=== PATIENT | male | born 1935 | race Caucasian/White ===

== ENCOUNTER → 2017-11-22 07:07 | Outpatient (CLI) | payer OTHER, SELFPAY ==
[2017-11-22 09:27] LABS: Hemoglobin A1C% w Est Avg Glu 7.1 % (4.0-6.0)
[2017-11-22 09:39] LABS: Alanine Aminotransferase 30 IU/L (21-72); Albumin 4.3 g/dL (3.5-5.0); Albumin Globulin Ratio 1.5 (1.0-2.8); Alkaline Phosphatase 60 U/L (38-126); Aspartate Aminotransferase 21 IU/L (17-59); Bilirubin Total 0.5 mg/dL (0.2-1.3); Blood Urea Nitrogen 17 mg/dL (9-20); Carbon Dioxide 26 mmol/L (22-32); Chloride 102 mmol/L (98-107); Cholesterol 183 mg/dL (140-199); Estimated Glomerular Filt Rate > 60.0 mL/min (>60); Globulin 2.9 g/dL (1.7-4.1); Glucose 156 mg/dL (80-110); HDL Cholesterol 35 mg/dL (40-60); HEMOLYSIS < 15 (0-50); LDL Cholesterol Calculated 115 mg/dL (<100); Potassium 4.2 mmol/L (3.4-5.1); Sodium 142 mmol/L (137-145); Total Protein 7.2 g/dL (6.3-8.2); Triglycerides 163 mg/dL (35-150)
== END ==
PROVIDERS: PCP Family Medicine; Visit Provider Urology
DX: R97.20 Elevated prostate specific antigen [PSA] (principal); E78.5 Hyperlipidemia, unspecified; R73.9 Hyperglycemia, unspecified
CPT/HCPCS: 36415; 80053; 80061; 83036; 84153

== ENCOUNTER → 2017-12-21 12:51 | Outpatient (CLI) | payer OTHER, SELFPAY ==
--- NOTE | 2017-12-21 12:52 | DI.RAD.S_ITS ---
PROCEDURE: XR CHEST 2V INDICATIONS: Cough TECHNIQUE: 2 views of the chest were acquired. COMPARISON: None. FINDINGS: Surgical changes and devices: None. Lungs and pleura: No pleural effusions or pneumothorax. Lungs are minimal alveolar stranding lateral lung bases bilaterally possibly atelectasis given mildly reduced inspiratory volume. Behind the left heart mild or early pneumonia is suspected.. Mediastinum: Mediastinal contours are normal. Heart size is normal. Bones and chest wall: No suspicious bony abnormalities. Soft tissues appear unremarkable. IMPRESSION: Mild or early pneumonia retrocardiac left lung base. Slight stranding in each costophrenic sulcus seen on the frontal projection only, which might represent atelectasis from reduced inspiration. Dictated by: Aris Cruz M.D. on 12/21/2017 at 13:18 Approved by: Aris Cruz M.D. on 12/21/2017 at 13:18
== END ==
PROVIDERS: PCP Family Medicine; Visit Provider Family Medicine
DX: J18.9 Pneumonia, unspecified organism (principal)
CPT/HCPCS: 71046

== ENCOUNTER → 2018-03-15 13:56 | Outpatient (CLI) | payer OTHER, SELFPAY ==
--- NOTE | 2018-03-15 13:58 | DI.RAD.S_ITS ---
PROCEDURE: XR CHEST 2V INDICATIONS: rule out pneumonia TECHNIQUE: 2 views of the chest were acquired. COMPARISON: [facility], CR, XR CHEST 2V, 12/21/2017, 12:50. FINDINGS: Surgical changes and devices: None. Lungs and pleura: No pleural effusions or pneumothorax. Lungs are clear. Mediastinum: Mediastinal contours are normal. Heart size is normal. Bones and chest wall: No suspicious bony abnormalities. Soft tissues appear unremarkable. IMPRESSION: No acute cardiopulmonary pathology. Dictated by: Alphonse Morgan M.D. on 03/15/2018 at 15:00 Approved by: Alphonse Morgan M.D. on 03/15/2018 at 15:00
== END ==
PROVIDERS: PCP Family Medicine; Visit Provider Family Medicine
DX: Z87.01 Personal history of pneumonia (recurrent) (principal)
CPT/HCPCS: 71046

== ENCOUNTER → 2018-07-03 07:04 | Outpatient (CLI) | payer OTHER, SELFPAY ==
[2018-07-03 09:03] LABS: Alanine Aminotransferase 27 IU/L (21-72); Albumin 4.2 g/dL (3.5-5.0); Albumin Globulin Ratio 1.4 (1.0-2.8); Alkaline Phosphatase 66 U/L (38-126); Aspartate Aminotransferase 20 IU/L (17-59); BUN Creatinine Ratio 13.8 (6-22); Bilirubin Total 0.6 mg/dL (0.2-1.3); Blood Urea Nitrogen 18 mg/dL (9-20); Calcium 9.3 mg/dL (8.4-10.2); Carbon Dioxide 25 mmol/L (22-32); Chloride 102 mmol/L (98-107); Cholesterol 179 mg/dL (140-199); Globulin 3.1 g/dL (1.7-4.1); Glucose 167 mg/dL (80-110); HDL Cholesterol 35 mg/dL (40-60); HEMOLYSIS < 15 (0-50); LDL Cholesterol Calculated 99 mg/dL (<100); Sodium 140 mmol/L (137-145); Total Protein 7.3 g/dL (6.3-8.2); Triglycerides 227 mg/dL (35-150)
== END ==
PROVIDERS: PCP Family Medicine; Visit Provider Family Medicine
DX: E78.5 Hyperlipidemia, unspecified (principal); I10 Essential (primary) hypertension
CPT/HCPCS: 36415; 80053; 80061

== ENCOUNTER → 2018-07-22 10:24 | Outpatient (CLI) | payer OTHER, SELFPAY ==
--- NOTE | 2018-07-22 10:28 | DI.RAD.S_ITS ---
PROCEDURE: XR CHEST 2V INDICATIONS: Cough TECHNIQUE: 2 views of the chest were acquired. COMPARISON: [facility], CR, XR CHEST 2V, 03/15/2018, 13:46. FINDINGS: Surgical changes and devices: None. Lungs and pleura: Lungs are clear. No pleural effusions or pneumothorax. Mediastinum: Mediastinal contours are normal. Heart size is normal. Bones and chest wall: No suspicious bony abnormalities. Soft tissues appear unremarkable. IMPRESSION: No acute pulmonary pathology. Dictated by: Alphonse Morgan M.D. on 07/22/2018 at 10:39 Approved by: Alphonse Morgan M.D. on 07/22/2018 at 10:39
== END ==
PROVIDERS: PCP Family Medicine; Visit Provider Family Medicine
DX: R05 Cough (principal)
CPT/HCPCS: 71046

== ENCOUNTER 2018-10-04 19:47 | Inpatient (IN) | payer OTHER, SELFPAY ==
[2018-10-04] VITALS (7 sets, daily range): BP systolic 98–134; BP diastolic 42–65; PULSE 65–83; RESP 14–25; TEMP 37.2–38.6; O2SAT 94–98; BMI 28.1
--- NOTE | 2018-10-04 20:08 | ED.WEAKNESS ---
HPI - Weakness General Chief complaint: Weakness Stated complaint: Multiple Falls Time Seen by Provider: 10/04/18 20:08 Source: patient Mode of arrival: EMS Limitations: no limitations History of Present Illness HPI Narrative: 83-year-old male who lives at home alone brought in by EMS because over the past couple days he has had weakness and multiple falls. He states he has not eaten and drank very much over the past couple days because he has been too weak to get up and every time that he stands up he would fall down. He reports no injuries from the falls. He states that he has not taken his medicines in the past couple days. He does have a medical alert button around his neck but he does not use this. He had does not have any family living in the area. Has not tried anything for symptoms prior to arrival. Related Data Home Medications Medication Instructions Recorded Confirmed Fish Oil (#FISH OIL) 1 iu PO QDAY #0 06/03/12 07/19/18 vit C,Z-Jw-wxyxq-lutein-zeaxan 1 ea PO #0 06/06/17 07/19/18 [PreserVision AREDS-2] aspirin 81 mg tablet,delayed 81 mg PO DAILY 12/21/17 07/19/18 release Previous Rx's Medication Instructions Recorded metoprolol succinate [Toprol XL] 25 mg PO QDAY #90 ter 04/22/18 benzonatate 100 mg capsule 100 mg PO TID PRN #30 cap 07/19/18 tamsulosin 0.4 mg capsule 0.8 mg PO DAILY #180 cap 08/13/18 lovastatin 20 mg tablet 20 mg PO DAILY #90 tab 08/30/18 Allergies Allergy/AdvReac Type Severity Reaction Status Date / Time No Known Drug Allergies Allergy Verified 10/04/18 20:09 Review of Systems Constitutional Reports chills, Reports fatigue, Reports fever(s), Reports frequent falls, Denies headache(s), Reports lethargy, Reports malaise, Reports night sweats and Reports weakness Eyes Denies change in vision ENT Ears, Nose, Mouth, and Throat: Denies vertigo, Denies dizziness, Denies headache(s) and Reports disequilibrium Cardiovascular Denies chest pain and Denies dyspnea Respiratory Denies dyspnea Gastrointestinal Gastrointestinal: Denies abdominal pain, Denies change in stool character, Denies nausea and Denies vomiting Genitourinary Denies dysuria Musculoskeletal Denies myalgias and Denies arthralgias Integumentary/Breasts Denies lesions and Denies rash Neurologic Denies behavioral changes, Denies confusion, Denies vertigo, Denies dizziness, Reports frequent falls, Denies headache(s), Denies focal weakness, Denies convulsions, Denies paresthesias, Reports disequilibrium and Reports weakness Psychiatric Denies behavioral changes and Denies confusion Endocrine Reports fatigue Hematologic/Lymphatic Denies easy bleeding and Denies easy bruising Allergic/Immunologic Denies urticaria [facility] Medical History BPH (benign prostatic hyperplasia) (Chronic Unknown) Diverticular disease (Chronic Unknown) Hearing loss (Chronic Unknown) Hyperlipemia (Chronic Unknown) Sleep apnea (Chronic Unknown) Skin cancer (Resolved Unknown) Squamous cell carcinoma (Resolved 01/2016) Family History Father No problems noted. Mother No problems noted. Social History Smoking Status: Former smoker Tobacco: How many years used: 20 alcohol intake: current (rare) Exam Initial Vital Signs Initial Vital Signs: Vital Signs Temperature 101.5 F H 10/04/18 20:09 Pulse Rate 83 10/04/18 20:09 Respiratory Rate 16 10/04/18 20:09 Blood Pressure 129/65 10/04/18 20:09 Pulse Oximetry 98 10/04/18 20:09 Const General: ill appearing Orientation: alert, awake and oriented x3 Limitations: mental status not altered HENVA Head: normal to inspection and normocephalic Nose: external nose normal Face and sinus: normal facial exam Mouth: other (Dry mucous membranes) Eyes Pupils: PERRL EOM: EOM intact bilaterally Resp Effort & Inspection: normal respiratory effort Auscultation: clear to auscultation bilaterally Cardio Rate: regular rate Rhythm: regular rhythm Pulses: radial pulses present GI Inspection: non-distended Palpation: soft, No firm and No tender Skin Rashes: no rashes Neuro General: alert, awake and oriented x3 Cognition: normal cognition Speech: speech normal Gait: normal gait Motor: muscle tone normal throughout Extrem General: normal to inspection, capillary refill normal and No edema Psych Appearance: grossly normal and well kempt Course Orders Ordered: ED Orders 10/04/18 19:20 B Type Natriuretic Peptide Stat Complete Blood Count AUTO DIFF Stat Comprehensive Metabolic Panel Stat Lipase Stat Procalcitonin Stat Troponin I Stat 10/04/18 20:10 XR chest 1V Stat EKG-12 Lead Stat 10/04/18 20:25 Influenza A and B by PCR Rapid Stat 10/04/18 20:31 Ethanol (ETOH) Stat Lactate (Lactic Acid) Stat 10/04/18 21:32 US abdomen complete Stat 10/04/18 22:00 Urine Microscopic Stat 10/05/18 01:27 Lactate (Lactic Acid) Stat Troponin I Stat Sodium Chloride (Normal Saline 0.9%) 1,000 mls @ 150 mls/hr IV CONT MATEO Last Admin: 10/04/18 20:40 Dose: 150 mls/hr Levofloxacin (Levaquin) 750 mg in 150 mls @ 100 mls/hr IV NOW ONE Stop: 10/05/18 03:29 Discontinued Medications Acetaminophen (Tylenol) 650 mg PO NOW ONE Stop: 10/04/18 21:05 Last Admin: 10/04/18 21:11 Dose: 650 mg Ceftriaxone Sodium/Dextrose (Rocephin) 1 gm in 50 mls @ 100 mls/hr IV NOW ONE Stop: 10/05/18 02:22 Vital Signs - 8 hr 10/04/18 20:09 10/04/18 21:11 10/04/18 21:42 Temperature 101.5 F H 99.9 F H 98.9 F Pulse Rate 83 Respiratory Rate 16 Blood Pressure 129/65 Blood Pressure [Right Arm] Pulse Oximetry 98 10/04/18 22:18 10/04/18 22:20 10/04/18 22:30 Temperature Pulse Rate 75 79 65 Respiratory Rate 14 19 Blood Pressure Blood Pressure [Right Arm] 134/52 L 134/52 L 120/49 L Pulse Oximetry 97 96 94 10/04/18 23:00 10/05/18 01:05 Temperature 98.4 F Pulse Rate 65 114 H Respiratory Rate 25 H 17 Blood Pressure Blood Pressure [Right Arm] 98/42 L 138/61 Pulse Oximetry 95 96 MDM - Weakness Lab Data Attestation: I reviewed the patient's lab results. Result diagrams: 10/04/18 19:20 10/04/18 19:20 Lab Results 10/04/18 10/04/18 10/04/18 Range/Units 19:20 19:20 19:20 WBC 7.0 (4.5-11.0) X10^3/uL RBC 4.29 L (4.5-5.9) X10^6/uL Hgb 13.4 L (13.5-17.5) g/dL Hct 39.2 L (41-53) % MCV 91.2 (80-100) fL MCH 31.2 (26-34) PG MCHC 34.2 (30-36) % RDW 14.1 (11.6-14.8) % Plt Count 128 L (150-400) X10^3/uL Neut % (Auto) 89.8 H (50-75) % Lymph % (Auto) 2.4 L (25-40) % [place] % (Auto) 7.4 (3-14) % Eos % (Auto) 0.2 L (2-4) % Baso % (Auto) 0.2 (0-2) % Neut # (Auto) 6300 (1111-5721) /uL Lymph # (Auto) 200 L (7641-3273) /uL [place] # (Auto) 500 (0-900) /uL Eos # (Auto) 0 (0-450) /uL Baso # (Auto) 0 (0-100) /uL Sodium 132 L (137-145) mmol/L Potassium 3.9 (3.4-5.1) mmol/L Chloride 97 L (98-107) mmol/L Carbon Dioxide 20 L (22-32) mmol/L BUN 24 H (9-20) mg/dL Creatinine 1.20 (0.66-1.25) mg/dL Estimated GFR 58.1 L (>60) mL/min BUN/Creatinine Ratio 20.0 (6-22) Glucose 229 H (80-110) mg/dL Lactate (0.7-2.1) mmol/L Calcium 8.7 (8.4-10.2) mg/dL Total Bilirubin 1.4 H (0.2-1.3) mg/dL AST 127 H (17-59) IU/L ALT 142 H (21-72) IU/L Alkaline Phosphatase 130 H (38-126) U/L Troponin I 0.031 (0.01-0.034) ng/mL B-Natriuretic Peptide < 100 (<100) Total Protein 7.3 (6.3-8.2) g/dL Albumin 4.4 (3.5-5.0) g/dL Globulin 2.9 (1.7-4.1) g/dL Albumin/Globulin Ratio 1.5 (1.0-2.8) Lipase 62 (23-300) U/L Procalcitonin 2.73 H (<0.5) ng/mL Urine RBC (0-5/HPF) Urine WBC (0-5/HPF) Ur Squamous Epith Cells (0-5/HPF) Urine Bacteria (None) Urine Mucus (Negative) Ur Culture Indicated? Ethyl Alcohol mg/dL Influenza A & B (PCR) (Negative) 10/04/18 10/04/18 10/04/18 Range/Units 20:25 20:31 20:31 WBC (4.5-11.0) X10^3/uL RBC (4.5-5.9) X10^6/uL Hgb (13.5-17.5) g/dL Hct (41-53) % MCV (80-100) fL MCH (26-34) PG MCHC (30-36) % RDW (11.6-14.8) % Plt Count (150-400) X10^3/uL Neut % (Auto) (50-75) % Lymph % (Auto) (25-40) % [place] % (Auto) (3-14) % Eos % (Auto) (2-4) % Baso % (Auto) (0-2) % Neut # (Auto) (7121-1120) /uL Lymph # (Auto) (0474-1003) /uL [place] # (Auto) (0-900) /uL Eos # (Auto) (0-450) /uL Baso # (Auto) (0-100) /uL Sodium (137-145) mmol/L Potassium (3.4-5.1) mmol/L Chloride (98-107) mmol/L Carbon Dioxide (22-32) mmol/L BUN (9-20) mg/dL Creatinine (0.66-1.25) mg/dL Estimated GFR (>60) mL/min BUN/Creatinine Ratio (6-22) Glucose (80-110) mg/dL Lactate 1.5 (0.7-2.1) mmol/L Calcium (8.4-10.2) mg/dL Total Bilirubin (0.2-1.3) mg/dL AST (17-59) IU/L ALT (21-72) IU/L Alkaline Phosphatase (38-126) U/L Troponin I (0.01-0.034) ng/mL B-Natriuretic Peptide (<100) Total Protein (6.3-8.2) g/dL Albumin (3.5-5.0) g/dL Globulin (1.7-4.1) g/dL Albumin/Globulin Ratio (1.0-2.8) Lipase (23-300) U/L Procalcitonin (<0.5) ng/mL Urine RBC (0-5/HPF) Urine WBC (0-5/HPF) Ur Squamous Epith Cells (0-5/HPF) Urine Bacteria (None) Urine Mucus (Negative) Ur Culture Indicated? Ethyl Alcohol < 10 mg/dL Influenza A & B (PCR) Negative (Negative) 10/04/18 10/05/18 10/05/18 Range/Units 22:00 01:27 01:27 WBC (4.5-11.0) X10^3/uL RBC (4.5-5.9) X10^6/uL Hgb (13.5-17.5) g/dL Hct (41-53) % MCV (80-100) fL MCH (26-34) PG MCHC (30-36) % RDW (11.6-14.8) % Plt Count (150-400) X10^3/uL Neut % (Auto) (50-75) % Lymph % (Auto) (25-40) % [place] % (Auto) (3-14) % Eos % (Auto) (2-4) % Baso % (Auto) (0-2) % Neut # (Auto) (7474-2357) /uL Lymph # (Auto) (9226-8413) /uL [place] # (Auto) (0-900) /uL Eos # (Auto) (0-450) /uL Baso # (Auto) (0-100) /uL Sodium (137-145) mmol/L Potassium (3.4-5.1) mmol/L Chloride (98-107) mmol/L Carbon Dioxide (22-32) mmol/L BUN (9-20) mg/dL Creatinine (0.66-1.25) mg/dL Estimated GFR (>60) mL/min BUN/Creatinine Ratio (6-22) Glucose (80-110) mg/dL Lactate 3.2 H (0.7-2.1) mmol/L Calcium (8.4-10.2) mg/dL Total Bilirubin (0.2-1.3) mg/dL AST (17-59) IU/L ALT (21-72) IU/L Alkaline Phosphatase (38-126) U/L Troponin I 0.015 (0.01-0.034) ng/mL B-Natriuretic Peptide (<100) Total Protein (6.3-8.2) g/dL Albumin (3.5-5.0) g/dL Globulin (1.7-4.1) g/dL Albumin/Globulin Ratio (1.0-2.8) Lipase (23-300) U/L Procalcitonin (<0.5) ng/mL Urine RBC 1-5/hpf (0-5/HPF) Urine WBC None seen (0-5/HPF) Ur Squamous Epith Cells 0-1 /hpf (0-5/HPF) Urine Bacteria Few (2-10) H (None) Urine Mucus 1+ H (Negative) Ur Culture Indicated? Cult not indicated Ethyl Alcohol mg/dL Influenza A & B (PCR) (Negative) Urine Dip Bedside Urine Glucose 100 mg/dl Bedside Urine Bilirubin - Negative Bedside Urine Ketone +/- 5 Urine Specific [place] 1.015 Bedside Urine Occult Blood +/- Bedside Urine pH 6.0 Bedside Urine Protein + 30 Bedside Urine Urobilinogen 1+ 2mg Bedside Urine Nitrite - Negative Bedside Urine Leukocytes - Negative Esterase Imaging Data Chest x-ray: Radiologist's impression: [address] [address] XRay Report Signed Patient: Jim Mccormick MIGUELINA#: [id number] : 1935cct:[id number] Age/Sex: 83 / MDate of Service: 10/04/18 Loc: ED Accession Number: [id number] Procedure: XR chest 1V Ordering Provider: Jim Reaves D.O. PROCEDURE: XR CHEST 1V INDICATIONS: Weakness and fever concern for pneumonia TECHNIQUE: One view of the chest was acquired. COMPARISON: [facility], CR, XR CHEST 2V, 07/22/2018, 10:31. FINDINGS: Surgical changes and devices: There is a life alert button over the lower heart. Lungs and pleura: Lungs are clear. No pleural effusions or pneumothorax. Mediastinum: Mediastinal contours appear normal. Heart size is normal. Bones and chest wall: No suspicious bony lesions. Overlying soft tissues appear unremarkable. IMPRESSION: No evidence acute pulmonary process. Findings were discussed with Dr. Reaves at the time of study dictation. Dictated by: Robin Brady M.D. on 10/04/2018 at 20:54 Approved by: Robin Brady M.D. on 10/04/2018 at 20:59 US - abdomen: Radiologist's impression: Slight flaring distal abdominal aorta to 2.7 cm. Fatty infiltration liver without other abnormalities. ECG Data Attestation: I personally reviewed and interpreted this ECG as follows: Prior ECG tracings: not available for review Interpretation: Sinus rhythm Ventricular rate 82 First degree AV block as needed oval 264 Q-waves in lead 3 and AVF normal QRS Normal QTC No ST T wave changes MDM Narrative Medical decision making narrative: Upon arrival patient was febrile and having rigors however was not hypotensive. Was not tachycardic. Was clinically dehydrated with dry mucous membranes. He was given Tylenol and fluids. His fever improved. The rigors went away. His chest x-ray shows no signs of pneumonia. The right upper quadrant ultrasound shows no signs of acute pathology. Patient does have a history of alcohol use. His urine shows no signs of pneumonia. His skin shows no signs of cellulitis. He clinically does not have meningitis. Flu is negative. initially his lactate was low however a repeat lactate was was elevated this was after fluid hydration. Patient ate quite a bit of food here in the emergency department. He states that he has any need for a while. Patient did ambulate around the department stating that he felt better however while he was being observed his rigors return to the stated that he did not feel well. I have a high suspicion that there is an occult infection given his elevation in his lactate is elevated procalcitonin any fevers. He was given Levaquin because I felt that the most likely source would be a pneumonia that potentially was not observed on the chest x-ray given his dehydration status. Levaquin would also cover any urinary issues. I held on any abdominal CT scans he had no abdominal pain on exam. I discussed the case with [employer] Aris the night hospitalist who will admit the patient for further evaluation and treatment. I discussed the admission with the patient who expressed understanding and agreement. Discharge Plan Departure Patient Disposition: Admitted as Observation Clinical Impression: Dehydration, Chills, Fever of unknown origin (FUO)
[2018-10-04 20:18] LABS: Add Manual Diff / Slide Review NO; Basophils Absolute Auto 0 /uL (0-100); Basophils Percent Auto 0.2 % (0-2); Eosinophils Absolute Auto 0 /uL (0-450); Eosinophils Percent Auto 0.2 % (2-4); Hematocrit 39.2 % (41-53); Hemoglobin 13.4 g/dL (13.5-17.5); Lymphocytes Absolute Auto 200 /uL (1100-4500); Lymphocytes Percent Auto 2.4 % (25-40); Mean Corpuscular HGB Conc 34.2 % (30-36); Mean Corpuscular Hemoglobin 31.2 PG (26-34); Mean Corpuscular Volume 91.2 fL (80-100); Monocytes Absolute Auto 500 /uL (0-900); Monocytes Percent Auto 7.4 % (3-14); Neutrophils Absolute Auto 6300 /uL (1500-7000); Neutrophils Percent Auto 89.8 % (50-75); Platelet Count 128 X10^3/uL (150-400); Red Blood Cell Count 4.29 X10^6/uL (4.5-5.9); Red Cell Distribution Width 14.1 % (11.6-14.8)
[2018-10-04 20:26] LABS: Alanine Aminotransferase 142 IU/L (21-72); Albumin 4.4 g/dL (3.5-5.0); Albumin Globulin Ratio 1.5 (1.0-2.8); Alkaline Phosphatase 130 U/L (38-126); Aspartate Aminotransferase 127 IU/L (17-59); Bilirubin Total 1.4 mg/dL (0.2-1.3); Blood Urea Nitrogen 24 mg/dL (9-20); Calcium 8.7 mg/dL (8.4-10.2); Carbon Dioxide 20 mmol/L (22-32); Chloride 97 mmol/L (98-107); Estimated Glomerular Filt Rate 58.1 mL/min (>60); Globulin 2.9 g/dL (1.7-4.1); Glucose 229 mg/dL (80-110); HEMOLYSIS 21 (0-50); Lipase 62 U/L (23-300); Potassium 3.9 mmol/L (3.4-5.1); Sodium 132 mmol/L (137-145); Total Protein 7.3 g/dL (6.3-8.2)
[2018-10-04 20:36] LABS: Troponin I 0.031 ng/mL (0.01-0.034)
--- NOTE | 2018-10-04 20:38 | PC.NURSE ---
Pt eating sandwich, crackers, and drinking juice with no problems.
[2018-10-04 20:39] LABS: Procalcitonin 2.73 ng/mL (<0.5)
[2018-10-04] MEDS: SODIUM CHLORIDE 0.9% 1,000 ML 150 ML IV (20:40)
[2018-10-04 20:49] LABS: Lactate (Lactic Acid) 1.5 mmol/L (0.7-2.1)
[2018-10-04 20:52] LABS: Influenza A and B by PCR Rapid Negative (Negative)
[2018-10-04 20:53] LABS: B Type Natriuretic Peptide < 100 (<100)
[2018-10-04] MEDS: ACETAMINOPHEN 325 MG TABLET 650 MG PO (21:11)
--- NOTE | 2018-10-04 21:21 | PC.NURSE ---
pt reports feeling very week for about a week. he states he has had many falls that took him 15 or more minutes to be able to get up. He associates these falls with his weakness. He states he has had chills and sweats for a few days and is febrile here.
--- NOTE | 2018-10-04 21:32 | DI.US.S_ITS ---
PROCEDURE: US ABDOMEN COMPLETE INDICATIONS: ELEVATED LFT'S WITH FEVER TECHNIQUE: Real-time scanning was performed of the abdominal and retroperitoneal organs, with image documentation. COMPARISON: None. FINDINGS: Liver: The liver demonstrates diffusely increased echotexture without focal abnormalities consistent with chronic hepatocellular disease/hepatic steatosis. Gallbladder: Gallbladder is normal in sonographic appearance without wall thickening, pericholecystic fluid gallstones or abnormal sonographic Ribera's. Biliary ducts: Intrahepatic bile ducts are non-dilated. Extrahepatic bile duct caliber measures 6 mm. Normal is 6-7 mm or less in diameter, or 10 mm or less post-cholecystectomy. Pancreas: Visualized portions of the pancreas are sonographically normal. Spleen: Spleen is normal in size and homogeneous in echotexture. Kidneys: Kidneys are normal in size and echotexture. Right kidney measures 12.5 cm long; left kidney measures 11.3 cm long. No hydronephrosis or nephrolithiasis. No solid masses. Aorta: Visualized portions of the aorta is normal in caliber at less than 3 cm. Iliacs: Proximal common iliac arteries are normal in caliber at less than 2.5 cm. IVC: Intrahepatic inferior vena cava is patent. Miscellaneous: No free abdominal fluid. IMPRESSION: The liver demonstrates diffusely increased echotexture without focal abnormalities consistent with chronic hepatocellular disease/hepatic steatosis. Dictated by: Alex Merida M.D. on 10/05/2018 at 6:27 Approved by: Aelx Merida M.D. on 10/05/2018 at 6:32
[2018-10-04 22:08] LABS: Ethanol (ETOH) < 10 mg/dL
--- NOTE | 2018-10-04 22:12 | PC.NURSE ---
Pt given a urinal to provide a sample. Pt held urinal in right hand and pushed off of leg with left hand to a full upright stance unassisted. Pt provided sample and situated self in bed. US at bedside.
[2018-10-04 22:15] LABS: WBC Urine None Seen (0-5/HPF)
[2018-10-04 22:22] LABS: Bacteria Urine Few (2-10); Mucus Urine 1+ (Negative); RBC Urine 1-5/HPF (0-5/HPF)
[2018-10-04 22:23] LABS: Culture Indicated Urine Cult Not Indicated; Squamous Epithelial Cell Urine 0-1 /HPF (0-5/HPF)
[2018-10-05] VITALS (10 sets, daily range): BP systolic 107–140; BP diastolic 47–61; PULSE 51–114; RESP 14–18; TEMP 36.4–37.3; O2SAT 95–98; BMI 28.1
--- NOTE | 2018-10-05 | DI.ECHO.S_ITS ---
[facility] +---------+ [facility] +---------+ : : [address] : : : : [id number] : : : : Phone: [phone]+ Echocardiogram Report + + :Name: JANELLE TEE Study Date: 10/05/2018 Height: 68 in : :[facility] Weight: 186 lb : : Gender: Male BSA: 2.0 m2 : :: 1935 Age: 83 yrs BP: 140/57 mmHg: :Reason For Study: ENDOCARDITIS : :Ordering Physician: Katina : :Hospitalist Performed By: Fish Thompson : :Referring: Cassandra SYED E : + + Interpretation Summary The left ventricle is normal in size. Left ventricular systolic function is normal without focal wall motion abnormalities. The ejection fraction is estimated to be 60-65%. Diastolic parameters suggest probable normal left ventricular diastolic function and normal filling pressures. The right ventricle grossly appears normal in size with probable normal systolic function. The right ventricular systolic pressure is estimated to be at least 27 mmHg based on an estimated right atrial pressure of 3 mm Hg. The left atrium is mildly dilated. Right atrial size is normal. There is no significant valvular heart disease. The aortic root is normal size. No obvious vegetative masses seen on valves. Procedure: A two-dimensional transthoracic echocardiogram with color flow and Doppler was performed. The study quality was technically good. There is no prior echocardiogram noted for this patient. The patient was in sinus bradycardia with heart rates between 53-56 bpm during the exam. Left Ventricle: The left ventricle is normal in size. There is normal left ventricular wall thickness. Left ventricular systolic function is normal without focal wall motion abnormalities. The ejection fraction is estimated to be 60-65%. Diastolic parameters suggest probable normal left ventricular diastolic function and normal filling pressures. Right Ventricle: The right ventricle grossly appears normal in size with probable normal systolic function. Atria: The left atrium is mildly dilated. Right atrial size is normal. The interatrial septum is intact with no evidence for an atrial septal defect. Mitral Valve: There is mild to moderate mitral regurgitation. Aortic Valve: The aortic valve is normal in structure and function. No aortic regurgitation is present. Tricuspid Valve: The tricuspid valve is normal in structure and function. There is a trace or physiologic amount of tricuspid regurgitation. The right ventricular systolic pressure is estimated to be at least 27 mmHg based on an estimated right atrial pressure of 3 mm Hg. Pulmonic Valve: The pulmonic valve leaflets are thin and pliable; valve motion is normal. There is mild pulmonic regurgitation. There is no significant valvular heart disease. Great Vessels: The aortic root is normal size. The dimensions of the ascending aorta are normal. The pulmonary artery is not well visualized, but is probably normal size. The IVC is of normal diameter and collapses greater than 50% with a sniff. This suggests a low right atrial pressure of 3 mm Hg. Pericardium/ Pleura There is no pericardial effusion. There is no pleural effusion. MMode/2D Measurements & Calculations LVIDd: 4.4 cm LVOT diam: 2.2 cm EPSS: 0.40 cm Ao root diam: 3.5 cm IVSd: 1.0 cm asc Aorta Diam: 3.1 cm LVPWd: 1.0 cm LV phillips. diameter/BSA (cm/m^2): 2.2 LA A2 area: 19.0 cm2 RA long axis: 5.3 cm LA A4 area: 25.0 cm2 RA area: 16.4 cm2 LA length (vol): 5.9 cm RA vol: 43.2 ml LA vol: 68.3 ml RA : 21.8 ml/m2 LA vol index: 34.5 ml/m2 Doppler Measurements & Calculations Ao V2 max: 166.7 cm/sec LVOT Max Abraham: 107.3 cm/sec Ao V2 mean: 114.1 cm/sec LV V1 max P.6 mmHg Ao max P.1 mmHg LV V1 VTI: 23.0 cm Ao mean P.7 mmHg RIAN(I,D): 2.4 cm2 Ao V2 VTI: 36.1 cm RIAN(V,D): 2.5 cm2 sev ratio: 0.64 RIAN indexed to BSA (cm^2/m^2): 1.2 MV E max abraham: 94.6 cm/sec TR max abraham: 247.4 cm/sec MV A max abraham: 93.2 cm/sec TR max P.5 mmHg MV E/A: 1.0 PA V2 max: 86.3 cm/sec Med Peak E' Abraham: 6.0 cm/sec PA V2 mean: 65.0 cm/sec E/E' med: 15.8 PA mean P.8 mmHg Lat Peak E' Abraham: 8.3 cm/sec PA pr(Accel): 29.1 mmHg E/E' lat: 11.4 E/e' average: 13.6 MV dec time: 0.23 sec SV(LVOT): 88.2 ml Reading Physician:12:59 PM
--- NOTE | 2018-10-05 01:10 | PC.NURSE ---
pt standing at bedside straightening out covers stating I'm freezing now again. Pt has visible tremors creating difficulty for him to straighten out his covers and untangle his monitor lines/wires. Pt assisted back to stretcher and given another warm blanket. Provider notified. Vitals assessed
[2018-10-05 01:49] LABS: Lactate (Lactic Acid) 3.2 mmol/L (0.7-2.1)
[2018-10-05 02:02] LABS: Troponin I 0.015 ng/mL (0.01-0.034)
--- NOTE | 2018-10-05 02:13 | PC.NURSE ---
Pt up at bedside stating I think I pulled the IV out. Pt IV is pulled out and there is blood on his shirt and bedding. Provider notified.
[2018-10-05] MEDS: levoFLOXacin 750 MG/150 ML PIGGYBACK 100 MG IV (02:36)
--- NOTE | 2018-10-05 03:06 | PC.NURSE ---
levaquin and Normal saline to continue in transport
[2018-10-05] MEDS: ONDANSETRON 4 MG/2 ML INJ IV (03:10)
[2018-10-05] MEDS: SODIUM CHLORIDE 0.9% 1,000 ML 100 ML IV ×3 (03:10→18:57)
[2018-10-05 03:35] LABS: Reflexed Lactate in 2 Hours Y
--- NOTE | 2018-10-05 03:53 | PM.HP.1 ---
History of Present Illness Date Patient Seen: 10/05/18 Time Patient Seen: 03:21 Chief complaint: Multiple Falls Narrative: Jim saini is an 83-year-old male with a history of cardiovascular disease, prior inferior NC, elevated PSA, hyperlipidemia, diabetes type 2 with neuropathy, sleep apnea and macular degeneration who presents to the ER with weakness and rigors. The patient states his symptoms began 2 days ago with generalized profound weakness and chills and general malaise. He states his symptoms lessened and he thought he was getting better but reoccurred the following morning. The patient reports he fell at least a dozen times indicating he would try to get up and his knees would collapse. Continued to have fevers and shaking chills but denies headaches or dizziness, nasal congestion or sore throat. He notes difficulty hearing and has hearing aids not present today. He reports no complaints of chest pain or palpitations and has had shortness of breath and denies cough. Reports no nausea or vomiting but has not had bowel movement since 3 days ago. He indicates he is eaten much or consumed fluids for the last 2 days due to his weakness. He does indicate he has little food in the house. He does acknowledge slow urination and nocturia 2-4 times nightly. The patient was brought into the ER by EMS was found to be febrile with temperature 101.5? heart rate of 83, blood pressure 129/65, respirations of 16 with a room air saturation 98%. On laboratory analysis the patient had a normal white count of 7.0 with hemoglobin of 13.4 and hematocrit of 39.2 and platelets 128. His chemistries notable for mildly low sodium at 1:32 a.m. and a BUN of 24 with a creatinine 1.2 and blood sugar of 229. He has an elevated total bili at 1.4 with an AST of 1 27, ALT 142 and alkaline phosphatase at 130. He had an elevated procalcitonin at 2.73 and initial lactate 1.5 and on remeasurement 3.2. His urinalysis was unremarkable as was his chest x-ray which showed no acute pulmonary disease. had an abdominal ultrasound that was completed with no significant findings of biliary obstruction, cholelithiasis or ductal thickening. The patient is admitted for further evaluation of fever of unknown origin, positive infection indicators, weakness and dehydration. Patient History Medical History (Updated 10/05/18 @ 04:10 by JACINTO Beard) History of inferior wall myocardial infarction (Acute) Macular degeneration of left eye (Acute) Type 2 diabetes, uncontrolled, with neuropathy (Acute) BPH (benign prostatic hyperplasia) (Chronic Unknown) Diverticular disease (Chronic Unknown) Hearing loss (Chronic Unknown) Hyperlipemia (Chronic Unknown) Sleep apnea (Chronic Unknown) Skin cancer (Resolved Unknown) Squamous cell carcinoma (Resolved 01/2016) Surgical History History of bilateral cataract extraction (Acute) Family History Father No problems noted. Mother No problems noted. Social History household members: none Smoking Status: Former smoker Tobacco: How many years used: 20 alcohol intake: former Family & Social History Family History Father No problems noted. Mother No problems noted. Social History: household members none Prior Living Arrangements House Safety & Behavioral: Feels Safe in Current Yes Environment Been Physically Hurt or No Threatened By a Person Suicidal Ideation Description None Suicide Plan Description No Plan Tobacco & Substance use: Smoking Status Former smoker alcohol intake former Comment: The patient presently lives alone. His in August of last year. He has a daughter lives in [place]. His father at 67 from emphysema and his mother at age 90 from cardiovascular disease. Smoking: Smoked 1 pack per day quitting in 1969. Alcohol: Patient reports no alcohol consumption Substance use: Patient denies recreation pharmaceuticals or use of herbal or cannabis products. Advanced directives: Patient does not have an advanced directive and requests additional information. Following discussion he will be full code at this time but wishes to have no prolonged life sustaining measures. He designates his daughter to be his surrogate decision maker. Meds Home Medications Medication Instructions Recorded Confirmed Type Fish Oil (#FISH OIL) 1 iu PO QDAY #0 06/03/12 07/19/18 History vit C,M-Hf-pidas-lutein-zeaxan 1 ea PO #0 06/06/17 07/19/18 History [PreserVision AREDS-2] aspirin 81 mg tablet,delayed 81 mg PO DAILY 12/21/17 07/19/18 History release metoprolol succinate [Toprol XL] 25 mg PO QDAY #90 ter 04/22/18 07/19/18 Rx benzonatate 100 mg capsule 100 mg PO TID PRN #30 cap 07/19/18 Rx tamsulosin 0.4 mg capsule 0.8 mg PO DAILY #180 cap 08/13/18 Rx lovastatin 20 mg tablet 20 mg PO DAILY #90 tab 08/30/18 Rx Allergies Allergy/AdvReac Type Severity Reaction Status Date / Time No Known Drug Allergies Allergy Verified 10/04/18 20:09 Review of Systems Review of Systems All systems reviewed & are unremarkable except as noted in HPI and below Exam Vital Signs (past 8 hours): - 10/04/18 20:09 10/04/18 21:11 10/04/18 21:42 Temperature 101.5 F H 99.9 F H 98.9 F Pulse Rate 83 Respiratory Rate 16 Blood Pressure 129/65 Blood Pressure [Right Arm] Pulse Oximetry 98 10/04/18 22:18 10/04/18 22:20 10/04/18 22:30 Temperature Pulse Rate 75 79 65 Respiratory Rate 14 19 Blood Pressure Blood Pressure [Right Arm] 134/52 L 134/52 L 120/49 L Pulse Oximetry 97 96 94 10/04/18 23:00 10/05/18 01:05 10/05/18 03:10 Temperature 98.4 F 97.5 F L Pulse Rate 65 114 H 69 Respiratory Rate 25 H 17 18 Blood Pressure 140/57 L Blood Pressure [Right Arm] 98/42 L 138/61 Pulse Oximetry 95 96 96 Oxygen Delivery Method Room Air Narrative Exam Narrative: GENERAL APPEARANCE: well developed, well nourished, in no acute distress. HEAD: Normocephalic, atraumatic, no scalp lesions. EYES: pupils equal, round, reactive to light and accommodation, sclera non-icteric, extraocular movement intact. EARS: normal external structures, no ear pain, very hard of hearing uses hearing aids not present at this time NOSE: sinuses non tender to percussion, no rhinorrhea ORAL CAVITY: mucosa dry without lesions, white coating on tongue without erythema or pain, palate normal, tongue in midline. THROAT: normal, no erythema, no exudate, pharynx normal, uvula midline. NECK/THYROID: neck supple, left jugular venous distention, right jugular vein flat, no carotid bruit, no thyromegaly, trachea midline. LYMPH NODES: no cervical or supraclavicular lymphadenopathy. SKIN: warm and dry, no suspicious lesions, no rashes, good turgor. HEART: regular rate and rhythm, S1-S2 without murmur, no rubs or gallops, brisk capillary refill, 2+ dorsalis pedis pulse, no edema LUNGS: clear to auscultation bilaterally, no coarseness crackles or wheezing, dry cough present CHEST: Symmetrical movement, no accessory muscle use, no pain to AP and lateral compression. ABDOMEN: Firm, round, no fluid wave, no epigastric or abdominal tenderness on palpation, no guarding or peritoneal signs, no organomegaly, no flank or suprapubic tenderness BACK: Normal curvature, nontender to palpation, no CVA tenderness on percussion EXTREMITIES: moves all extremities, strength is 5/5 and symmetrical, well perfused. NEUROLOGIC: AAO x4, hard of hearing remaining cranial nerves grossly intact , motor strength normal upper and lower extremities, sensory exam intact to light touch, hearing grossly normal to speech. PSYCH: alert, cognitive function intact, good eye contact, stable mood with congruent affect Objective Labs Result Diagrams: 10/04/18 19:20 10/04/18 19:20 Labs: Laboratory Results - last 24 hr 10/04/18 10/04/18 10/04/18 19:20 19:20 19:20 WBC 7.0 RBC 4.29 L Hgb 13.4 L Hct 39.2 L MCV 91.2 MCH 31.2 MCHC 34.2 RDW 14.1 Plt Count 128 L Neut % (Auto) 89.8 H Lymph % (Auto) 2.4 L [place] % (Auto) 7.4 Eos % (Auto) 0.2 L Baso % (Auto) 0.2 Neut # (Auto) 6300 Lymph # (Auto) 200 L [place] # (Auto) 500 Eos # (Auto) 0 Baso # (Auto) 0 Sodium 132 L Potassium 3.9 Chloride 97 L Carbon Dioxide 20 L BUN 24 H Creatinine 1.20 Estimated GFR 58.1 L BUN/Creatinine Ratio 20.0 Glucose 229 H Lactate Calcium 8.7 Total Bilirubin 1.4 H AST 127 H ALT 142 H Alkaline Phosphatase 130 H Troponin I 0.031 B-Natriuretic Peptide < 100 Total Protein 7.3 Albumin 4.4 Globulin 2.9 Albumin/Globulin Ratio 1.5 Lipase 62 Procalcitonin 2.73 H Urine RBC Urine WBC Ur Squamous Epith Cells Urine Bacteria Urine Mucus Ur Culture Indicated? Ethyl Alcohol Influenza A & B (PCR) 10/04/18 10/04/18 10/04/18 20:25 20:31 20:31 WBC RBC Hgb Hct MCV MCH MCHC RDW Plt Count Neut % (Auto) Lymph % (Auto) [place] % (Auto) Eos % (Auto) Baso % (Auto) Neut # (Auto) Lymph # (Auto) [place] # (Auto) Eos # (Auto) Baso # (Auto) Sodium Potassium Chloride Carbon Dioxide BUN Creatinine Estimated GFR BUN/Creatinine Ratio Glucose Lactate 1.5 Calcium Total Bilirubin AST ALT Alkaline Phosphatase Troponin I B-Natriuretic Peptide Total Protein Albumin Globulin Albumin/Globulin Ratio Lipase Procalcitonin Urine RBC Urine WBC Ur Squamous Epith Cells Urine Bacteria Urine Mucus Ur Culture Indicated? Ethyl Alcohol < 10 Influenza A & B (PCR) Negative 10/04/18 10/05/18 10/05/18 22:00 01:27 01:27 WBC RBC Hgb Hct MCV MCH MCHC RDW Plt Count Neut % (Auto) Lymph % (Auto) [place] % (Auto) Eos % (Auto) Baso % (Auto) Neut # (Auto) Lymph # (Auto) [place] # (Auto) Eos # (Auto) Baso # (Auto) Sodium Potassium Chloride Carbon Dioxide BUN Creatinine Estimated GFR BUN/Creatinine Ratio Glucose Lactate 3.2 H Calcium Total Bilirubin AST ALT Alkaline Phosphatase Troponin I 0.015 B-Natriuretic Peptide Total Protein Albumin Globulin Albumin/Globulin Ratio Lipase Procalcitonin Urine RBC 1-5/hpf Urine WBC None seen Ur Squamous Epith Cells 0-1 /hpf Urine Bacteria Few (2-10) H Urine Mucus 1+ H Ur Culture Indicated? Cult not indicated Ethyl Alcohol Influenza A & B (PCR) Assessment & Plan Assessment & Plan narrative: This is an 83-year-old male patient who lives long and has been ill 2 days with systemic inflammatory response syndrome, profound weakness, sustaining frequent falls without evidence of trauma and poor nutrition and dehydration, 1. Systemic inflammatory response syndrome, acute -patient with 2 days of illness including fevers chills profound weakness resulting in falls -patient with a temperature a 101.5? upon arrival to emergency department -positive inflammatory markers with procalcitonin 2.73 and initial lactate of 1.5 and on recheck elevated at 3.2. White blood cell count is 7.0 without bandemia. -SOFA score is 3, positive for platelets of 128, creatinine of 1.2, bilirubin 1.4 -no source of infection has yet been identified, chest x-ray is negative abdominal exam is negative with negative ultrasound, no skin or wound infections. -dry cough is present obtain respiratory PCR -patient empirically treated with ceftriaxone and Levaquin in the ER. -will follow CBC, procalcitonin and lactate 2. Dehydration, acute -urine in the ER was found to be highly concentrated, BUN is 24 with a creatinine 1.2 with BUN creatinine ratio to 20:1, dry oral mucous membranes. -patient received boluses normal saline in the ER -will continue normal saline 100 cc per hour -will follow chemistries. 3. Elevated transaminase, present on admission, acute -patient without complaints of abdominal pain, at times around firm without fluid wave, no prior history of hepatitis -total bili is 1.4, AST 127, ALT 142 and alkaline phosphatase 130, LFTs were normal on labs in June 2018 -abdominal ultrasound completed with no significant findings -will follow LFTs. 4. Diabetes type 2 with neuropathy, uncontrolled, present on admission, chronic -glucose under ER chemistries is 229. Patient has neuropathy of bilateral toes. -patient with prior elevated HGB A1c, 7.5 in September 2017 and 7.16 November 2017 -patient is on no glycemic control regimen and appears to have failed diet management -will perform fingersticks ACHS and cover with sliding scale insulin medium range -diabetic diet, medium carbohydrate 5. Benign prostatic hypertrophy, present on admission, chronic -patient reports weak stream and dribbling. Nocturnal urination to 4 times nightly. -patient with previously elevated PSA at 4.64 1 year ago -will evaluate response of creatinine to IV hydration, elevated creatinine may be related to outlet obstruction. -will continue tamsulosin 0.4 mg. May consider adding finasteride 5 mg. 6. Hyperlipidemia, chronic, presumed stable -Will continue lovastatin 20 mg daily The patient is admitted to the hospital related to severity of symptoms and risk for complications. He will be admitted observation status with expected length of stay less than 2 midnights. Scores GCS Jonathan coma scale eye opening: Spontaneous Jonathan coma scale verbal response: Orientated [place] coma scale motor response: Obey commands Jonathan coma scale total score: 15 SOFA PaO2/FIO2: >=400 mmHg (Inferred, ABG not done, patient SpO2 is 98% on 21% oxygen, RR 16.) Platelets: < 150 Bilirubin: 1.2-1.9 mg/dL Hypotension: MAP >= 70 mmHg Jonathan Coma Scale: 15 Renal: Creatinine 1.2-1.9 mg/dL SOFA Score: 3 Quality VTE Deep Vein Thrombosis/Pulmonary Embolism Present on Admission: No
[2018-10-05 04:23] LABS: Add Manual Diff / Slide Review NO; Basophils Absolute Auto 0 /uL (0-100); Basophils Percent Auto 0.1 % (0-2); Eosinophils Absolute Auto 0 /uL (0-450); Eosinophils Percent Auto 0.4 % (2-4); Hematocrit 32.7 % (41-53); Hemoglobin 11.5 g/dL (13.5-17.5); Lymphocytes Absolute Auto 100 /uL (1100-4500); Lymphocytes Percent Auto 3.7 % (25-40); Mean Corpuscular HGB Conc 35.2 % (30-36); Mean Corpuscular Hemoglobin 31.5 PG (26-34); Mean Corpuscular Volume 89.4 fL (80-100); Monocytes Absolute Auto 400 /uL (0-900); Neutrophils Absolute Auto 3300 /uL (1500-7000); Neutrophils Percent Auto 84.8 % (50-75); Platelet Count 111 X10^3/uL (150-400); Red Blood Cell Count 3.65 X10^6/uL (4.5-5.9); Red Cell Distribution Width 14.1 % (11.6-14.8)
[2018-10-05 04:34] LABS: Lactate 2HR (Lactic Acid Rflx) 1.1 mmol/L (0.7-2.1)
--- NOTE | 2018-10-05 04:37 | PC.NURSE ---
Pt received on floor at 0310. Safe hand off from RN emergency room. Pt is resting comfortably, A&o x3, Pt on telemetry: Sinus w/ 1st degree AV block, VSS, Lung sounds clear. SCD's applied. Pt is mixed continence. Pt has been weak and is able to get to bathroom at times but at other times goes in his brief. Pt is negative for flu.
[2018-10-05 04:38] LABS: BUN Creatinine Ratio 18.2 (6-22); Blood Urea Nitrogen 20 mg/dL (9-20); Calcium 7.8 mg/dL (8.4-10.2); Carbon Dioxide 23 mmol/L (22-32); Chloride 101 mmol/L (98-107); Estimated Glomerular Filt Rate > 60.0 mL/min (>60); Glucose 178 mg/dL (80-110); HEMOLYSIS < 15 (0-50); Potassium 3.8 mmol/L (3.4-5.1); Sodium 132 mmol/L (137-145)
[2018-10-05 04:41] LABS: Hemoglobin A1C% w Est Avg Glu 7.3 % (4.0-6.0)
[2018-10-05 04:54] LABS: Procalcitonin 2.96 ng/mL (<0.5)
[2018-10-05 05:37] LABS: WBC Urine None Seen (0-5/HPF)
[2018-10-05 05:43] LABS: Appearance Urine UA CLEAR; Bilirubin Urine UA NEGATIVE (NEGATIVE); Color Urine UA YELLOW; Glucose Urine UA NEGATIVE (Negative); Ketones Urine UA NEGATIVE (NEGATIVE); Leukocyte Esterase Urine UA NEGATIVE (NEGATIVE); Nitrite Urine UA NEGATIVE (Negative); Occult Blood Urine UA TRACE-INTACT (Negative); Protein Urine UA TRACE (Negative); Specific Gravity Urine UA 1.015 (1.000-1.035)
[2018-10-05 05:44] LABS: Adenovirus Not Detected (Not Detect); Bordetella pertussis Not Detected (Not Detect); Chlamydophila pneumoniae Not Detected (Not Detect); Coronavirus 229E Not Detected (Not Detect); Coronavirus HKU1 Not Detected (Not Detect); Coronavirus NL 63 Not Detected (Not Detect); Coronavirus OC43 Not Detected (Not Detect); Human Metapneumovirus Not Detected (Not Detect); Human Rhinovirus/Enterovirus Not Detected (Not Detect); Influenza A Not Detected (Not Detect); Influenza B Not Detected (Not Detect); Mycoplasma pneumoniae Not Detected (Not Detect); Parainfluenza Virus 1 Not Detected (Not Detect); Parainfluenza Virus 2 Not Detected (Not Detect); Parainfluenza Virus 3 Not Detected (Not Detect); Parainfluenza Virus 4 Not Detected (Not Detect); Respiratory Syncytial Virus Not Detected (Not Detect)
[2018-10-05 05:51] LABS: Bacteria Urine Occasional (0-1); RBC Urine 0-1/HPF (0-5/HPF)
[2018-10-05 05:52] LABS: Culture Indicated Urine Cult Not Indicated; Hyaline Casts Urine 0-1/LPF
[2018-10-05] MEDS: TAMSULOSIN 0.4 MG CAPSULE 0.8 MG PO (08:44)
[2018-10-05] MEDS: METOPROLOL ER 25 MG TABLET PO (08:44)
[2018-10-05] MEDS: ENOXAPARIN 40 MG/0.4 ML SYRINGE SUBCUT (08:44)
[2018-10-05] MEDS: VIT C/E/ZN/COPPR/LUTEIN/ZEAXAN CAPSULE 1 CAP PO (08:44)
[2018-10-05] MEDS: INSULIN ASPART 100 UNIT/ML INSULN PEN SUBCUT ×2 (08:44→20:51)
[2018-10-05] MEDS: CEFTRIAXONE 1 GM/50 ML FROZ.PIGGY IV (08:44)
[2018-10-05] MEDS: DOCUSATE 100 MG CAPSULE PO ×2 (08:44→19:43)
[2018-10-05] MEDS: ASPIRIN EC 81 MG TABLET PO (08:44)
--- NOTE | 2018-10-05 09:16 | P.PN_ITS ---
Subjective Date Patient Seen: 10/05/18 Time Patient Seen: 09:15 Interval history: He is seen today to follow up his weakness, dehydration, rigors, repeated falls and SIRS. The lactic acid level has dropped from 3.2 down to 1.1 with IV hydration. The procalcitonin has not dropped, it is cu rrently 2.96. Abdominal imaging documents steatosis of the liver. His A1c is 7.3. The white count is 4.1 with a hemoglobin of 11.5 and platelets of 111. The glucose is 178. Reviewing his symptoms, just before he began to have weak knees and repeated the fall in his house he started having chills. He has received both Levaquin and ceftriaxone. Exam Vital Signs (past 8 hours): - 10/05/18 03:10 10/05/18 03:59 10/05/18 07:00 Temperature 97.5 F L 97.5 F L Pulse Rate 69 69 Respiratory Rate 18 18 Blood Pressure 140/57 L 140/57 L Pulse Oximetry 96 96 97 10/05/18 07:40 10/05/18 08:44 Temperature 98.5 F Pulse Rate 72 Respiratory Rate 18 Blood Pressure 111/49 L Pulse Oximetry 97 Oxygen Delivery Method Room Air Narrative Exam Narrative: He is alert and oriented x3, and in no apparent distress. Heart is regular rate and rhythm without murmur. Lungs are clear to auscultation bilaterally. Abdomen is soft, bowel sounds positive, nontender, no org anomegaly. Extremities have no ankle edema. Objective Labs Result Diagrams: 10/05/18 04:10 10/05/18 04:10 Labs: Laboratory Results - last 24 hr 10/04/18 10/04/18 10/04/18 19:20 19:20 19:20 WBC 7.0 RBC 4.29 L Hgb 13.4 L Hct 39.2 L MCV 91.2 MCH 31.2 MCHC 34.2 RDW 14.1 Plt Count 128 L Neut % (Auto) 89.8 H Lymph % (Auto) 2.4 L [place] % (Auto) 7.4 Eos % (Auto) 0.2 L Baso % (Auto) 0.2 Neut # (Auto) 6300 Lymph # (Auto) 200 L [place] # (Auto) 500 Eos # (Auto) 0 Baso # (Auto) 0 Sodium 132 L Potassium 3.9 Chloride 97 L Carbon Dioxide 20 L BUN 24 H Creatinine 1.20 Estimated GFR 58.1 L BUN/Creatinine Ratio 20.0 Glucose 229 H Hemoglobin A1c Lactate Calcium 8.7 Total Bilirubin 1.4 H AST 127 H ALT 142 H Alkaline Phosphatase 130 H Troponin I 0.031 B-Natriuretic Peptide < 100 Total Protein 7.3 Albumin 4.4 Globulin 2.9 Albumin/Globulin Ratio 1.5 Lipase 62 Procalcitonin 2.73 H Urine Color Urine Appearance Urine pH Ur Specific [place] Urine Protein Urine Glucose (UA) Urine Ketones Urine Occult Blood Urine Nitrate Urine Bilirubin Urine Urobilinogen Ur Leukocyte Esterase Urine RBC Urine WBC Ur Squamous Epith Cells Urine Bacteria Hyaline Casts Urine Mucus Ur Culture Indicated? Ethyl Alcohol Chlamy pneumoniae PCR Adenovirus (PCR) B.parapertussis DNA PCR Coronavirus OC43 (PCR) Coronavirus HKU1 (PCR) Coronavirus 229E (PCR) Coronavirus NL63 (PCR) Human Metapneumovir PCR Influenza Type A (PCR) Influenza Type B (PCR) Influenza A & B (PCR) M. pneumoniae (PCR) Parainfluenza 1 (PCR) Parainfluenza 2 (PCR) Parainfluenza 3 (PCR) Parainfluenza 4 (PCR) RSV (PCR) Entero/Rhino (PCR) 10/04/18 10/04/18 10/04/18 20:25 20:31 20:31 WBC RBC Hgb Hct MCV MCH MCHC RDW Plt Count Neut % (Auto) Lymph % (Auto) [place] % (Auto) Eos % (Auto) Baso % (Auto) Neut # (Auto) Lymph # (Auto) [place] # (Auto) Eos # (Auto) Baso # (Auto) Sodium Potassium Chloride Carbon Dioxide BUN Creatinine Estimated GFR BUN/Creatinine Ratio Glucose Hemoglobin A1c Lactate 1.5 Calcium Total Bilirubin AST ALT Alkaline Phosphatase Troponin I B-Natriuretic Peptide Total Protein Albumin Globulin Albumin/Globulin Ratio Lipase Procalcitonin Urine Color Urine Appearance Urine pH Ur Specific [place] Urine Protein Urine Glucose (UA) Urine Ketones Urine Occult Blood Urine Nitrate Urine Bilirubin Urine Urobilinogen Ur Leukocyte Esterase Urine RBC Urine WBC Ur Squamous Epith Cells Urine Bacteria Hyaline Casts Urine Mucus Ur Culture Indicated? Ethyl Alcohol < 10 Chlamy pneumoniae PCR Adenovirus (PCR) B.parapertussis DNA PCR Coronavirus OC43 (PCR) Coronavirus HKU1 (PCR) Coronavirus 229E (PCR) Coronavirus NL63 (PCR) Human Metapneumovir PCR Influenza Type A (PCR) Influenza Type B (PCR) Influenza A & B (PCR) Negative M. pneumoniae (PCR) Parainfluenza 1 (PCR) Parainfluenza 2 (PCR) Parainfluenza 3 (PCR) Parainfluenza 4 (PCR) RSV (PCR) Entero/Rhino (PCR) 10/04/18 10/05/18 10/05/18 22:00 01:27 01:27 WBC RBC Hgb Hct MCV MCH MCHC RDW Plt Count Neut % (Auto) Lymph % (Auto) [place] % (Auto) Eos % (Auto) Baso % (Auto) Neut # (Auto) Lymph # (Auto) [place] # (Auto) Eos # (Auto) Baso # (Auto) Sodium Potassium Chloride Carbon Dioxide BUN Creatinine Estimated GFR BUN/Creatinine Ratio Glucose Hemoglobin A1c Lactate 3.2 H Calcium Total Bilirubin AST ALT Alkaline Phosphatase Troponin I 0.015 B-Natriuretic Peptide Total Protein Albumin Globulin Albumin/Globulin Ratio Lipase Procalcitonin Urine Color Urine Appearance Urine pH Ur Specific [place] Urine Protein Urine Glucose (UA) Urine Ketones Urine Occult Blood Urine Nitrate Urine Bilirubin Urine Urobilinogen Ur Leukocyte Esterase Urine RBC 1-5/hpf Urine WBC None seen Ur Squamous Epith Cells 0-1 /hpf Urine Bacteria Few (2-10) H Hyaline Casts Urine Mucus 1+ H Ur Culture Indicated? Cult not indicated Ethyl Alcohol Chlamy pneumoniae PCR Adenovirus (PCR) B.parapertussis DNA PCR Coronavirus OC43 (PCR) Coronavirus HKU1 (PCR) Coronavirus 229E (PCR) Coronavirus NL63 (PCR) Human Metapneumovir PCR Influenza Type A (PCR) Influenza Type B (PCR) Influenza A & B (PCR) M. pneumoniae (PCR) Parainfluenza 1 (PCR) Parainfluenza 2 (PCR) Parainfluenza 3 (PCR) Parainfluenza 4 (PCR) RSV (PCR) Entero/Rhino (PCR) 10/05/18 10/05/18 10/05/18 04:10 04:10 04:10 WBC 4.0 L RBC 3.65 L Hgb 11.5 L Hct 32.7 L MCV 89.4 MCH 31.5 MCHC 35.2 RDW 14.1 Plt Count 111 L Neut % (Auto) 84.8 H Lymph % (Auto) 3.7 L [place] % (Auto) 11.0 Eos % (Auto) 0.4 L Baso % (Auto) 0.1 Neut # (Auto) 3300 Lymph # (Auto) 100 L [place] # (Auto) 400 Eos # (Auto) 0 Baso # (Auto) 0 Sodium Potassium Chloride Carbon Dioxide BUN Creatinine Estimated GFR BUN/Creatinine Ratio Glucose Hemoglobin A1c Lactate 1.1 Calcium Total Bilirubin AST ALT Alkaline Phosphatase Troponin I B-Natriuretic Peptide Total Protein Albumin Globulin Albumin/Globulin Ratio Lipase Procalcitonin 2.96 H Urine Color Urine Appearance Urine pH Ur Specific [place] Urine Protein Urine Glucose (UA) Urine Ketones Urine Occult Blood Urine Nitrate Urine Bilirubin Urine Urobilinogen Ur Leukocyte Esterase Urine RBC Urine WBC Ur Squamous Epith Cells Urine Bacteria Hyaline Casts Urine Mucus Ur Culture Indicated? Ethyl Alcohol Chlamy pneumoniae PCR Adenovirus (PCR) B.parapertussis DNA PCR Coronavirus OC43 (PCR) Coronavirus HKU1 (PCR) Coronavirus 229E (PCR) Coronavirus NL63 (PCR) Human Metapneumovir PCR Influenza Type A (PCR) Influenza Type B (PCR) Influenza A & B (PCR) M. pneumoniae (PCR) Parainfluenza 1 (PCR) Parainfluenza 2 (PCR) Parainfluenza 3 (PCR) Parainfluenza 4 (PCR) RSV (PCR) Entero/Rhino (PCR) 10/05/18 10/05/18 10/05/18 04:10 04:10 04:18 WBC RBC Hgb Hct MCV MCH MCHC RDW Plt Count Neut % (Auto) Lymph % (Auto) [place] % (Auto) Eos % (Auto) Baso % (Auto) Neut # (Auto) Lymph # (Auto) [place] # (Auto) Eos # (Auto) Baso # (Auto) Sodium 132 L Potassium 3.8 Chloride 101 Carbon Dioxide 23 BUN 20 Creatinine 1.10 Estimated GFR > 60.0 BUN/Creatinine Ratio 18.2 Glucose 178 H Hemoglobin A1c 7.3 H Lactate Calcium 7.8 L Total Bilirubin AST ALT Alkaline Phosphatase Troponin I B-Natriuretic Peptide Total Protein Albumin Globulin Albumin/Globulin Ratio Lipase Procalcitonin Urine Color Urine Appearance Urine pH Ur Specific [place] Urine Protein Urine Glucose (UA) Urine Ketones Urine Occult Blood Urine Nitrate Urine Bilirubin Urine Urobilinogen Ur Leukocyte Esterase Urine RBC Urine WBC Ur Squamous Epith Cells Urine Bacteria Hyaline Casts Urine Mucus Ur Culture Indicated? Ethyl Alcohol Chlamy pneumoniae PCR Not detected Adenovirus (PCR) Not detected B.parapertussis DNA PCR Not detected Coronavirus OC43 (PCR) Not detected Coronavirus HKU1 (PCR) Not detected Coronavirus 229E (PCR) Not detected Coronavirus NL63 (PCR) Not detected Human Metapneumovir PCR Not detected Influenza Type A (PCR) Not detected Influenza Type B (PCR) Not detected Influenza A & B (PCR) M. pneumoniae (PCR) Not detected Parainfluenza 1 (PCR) Not detected Parainfluenza 2 (PCR) Not detected Parainfluenza 3 (PCR) Not detected Parainfluenza 4 (PCR) Not detected RSV (PCR) Not detected Entero/Rhino (PCR) Not detected 10/05/18 05:27 WBC RBC Hgb Hct MCV MCH MCHC RDW Plt Count Neut % (Auto) Lymph % (Auto) [place] % (Auto) Eos % (Auto) Baso % (Auto) Neut # (Auto) Lymph # (Auto) [place] # (Auto) Eos # (Auto) Baso # (Auto) Sodium Potassium Chloride Carbon Dioxide BUN Creatinine Estimated GFR BUN/Creatinine Ratio Glucose Hemoglobin A1c Lactate Calcium Total Bilirubin AST ALT Alkaline Phosphatase Troponin I B-Natriuretic Peptide Total Protein Albumin Globulin Albumin/Globulin Ratio Lipase Procalcitonin Urine Color Yellow Urine Appearance Clear Urine pH 6.0 Ur Specific [place] 1.015 Urine Protein Trace H Urine Glucose (UA) Negative Urine Ketones Negative Urine Occult Blood Trace-intact Urine Nitrate Negative Urine Bilirubin Negative Urine Urobilinogen 2.0 H Ur Leukocyte Esterase Negative Urine RBC 0-1/hpf Urine WBC None seen Ur Squamous Epith Cells Urine Bacteria Occasional (0-1) Hyaline Casts 0-1/lpf Urine Mucus Ur Culture Indicated? Cult not indicated Ethyl Alcohol Chlamy pneumoniae PCR Adenovirus (PCR) B.parapertussis DNA PCR Coronavirus OC43 (PCR) Coronavirus HKU1 (PCR) Coronavirus 229E (PCR) Coronavirus NL63 (PCR) Human Metapneumovir PCR Influenza Type A (PCR) Influenza Type B (PCR) Influenza A & B (PCR) M. pneumoniae (PCR) Parainfluenza 1 (PCR) Parainfluenza 2 (PCR) Parainfluenza 3 (PCR) Parainfluenza 4 (PCR) RSV (PCR) Entero/Rhino (PCR) Assessment & Plan Assessment & Plan narrative: 1. Systemic inflammatory response syndrome, acute -patient with 2 days of illness prior to admission including fevers, chills, profound weakness resulting in falls -patient with a temperature a 101.5? upon arrival to emergency department -positive inflammatory markers with procalcitonin 2.73 and initial lactate of 1.5 and on recheck elevated at 3.2, now 1.1. White blood cell count is 4.1. -SOFA score is 3, positive for platelets of 128, creatinine of 1.2, bilirubin 1.4 -no source of infection has yet been identified, chest x-ray is negative, abdominal exam is negative with negative ultrasound, no skin or wound infections. -dry cough is present, pending respiratory PCR -echocardiogram and sed rate are ordered to evaluate for possible endocarditis. -patient empirically treated with ceftriaxone and Levaquin in the ER, given the ongoing concern about pneumococcus with the rigors the Rocephin will be continued.. -will follow CBC, procalcitonin again tomorrow 2. Dehydration, acute -corrected with IV fluid. -will follow chemistries. 3. Elevated transaminase, present on admission, acute -patient without complaints of abdominal pain, at times around firm without f luid wave, no prior history of hepatitis -total bili was 1.4, AST 127, ALT 142 and alkaline phosphatase 130, LFTs were normal on labs in June 2018 -abdominal ultrasound completed with no significant findings other than hepatic steatosis -will follow LFTs. 4. Diabetes type 2 with neuropathy, uncontrolled, present on admission, chronic -glucose under ER chemistries is 229. Patient has neuropathy of bilateral toes. -patient with prior elevated HGB A1c, 7.5 in September 2017 and 7.16 November 2017 -patient is on no glycemic control regimen and appears to have failed diet management -will perform fingersticks ACHS and cover with sliding scale insulin medium range -diabetic diet, medium carbohydrate 5. Benign prostatic hypertrophy, present on admission, chronic -patient reports weak stream and dribbling. Nocturnal urination to 4 times nightly. -patient with previously elevated PSA at 4.64 1 year ago -will continue tamsulosin 0.4 mg. May consider adding finasteride 5 mg. 6. Hyperlipidemia, chronic, presumed Quality VTE Deep Vein Thrombosis/Pulmonary Embolism Present on Admission: No
[2018-10-05 10:07] LABS: Erythrocyte Sedimentation Rate 46 MM/HR (0-15)
--- NOTE | 2018-10-05 15:38 | CM.IDA ---
Initial DCP Assessment Note: Pt is an 83 yo resident of [place], per prog note, pt admitted for Systemic inflammatory response syndrome, acute. PCP: Linda Toure Payer: Francisco MCNEILL Reviewed chart, met w/pt and his dtr Sharon at bedside, explained role. Pt and dtr awaiting a visit from Dr Aceves anxiously. Pt says he lives alone and has considered moving closer to his dtrs near [place] but doesn't like their location; he knows at some point he might have to move. Pt says he has been indp and functional at baseline up until the last few days when he got really sick. This COMPUTER METEOROLOGIST asked how he has been doing since the of his last year? Pt says not good, I miss her. Pt denies talking with anyone about his grief and denies needing to. PT has been ordered but pt says he hasn't worked with them yet, no notes on chart. This COMPUTER METEOROLOGIST strongly encouraged pt to consider naming a DPOA and he agrees, stating he has the ppk and information on his computer. This COMPUTER METEOROLOGIST alerted Dr Aceves that pt was eager to speak w/him and dtr Sharon was at bedside awaiting results of echo done today. Dtr Lisy will be traveling up soon. COMPUTER METEOROLOGIST team will follow closely for coordination of safe DCP. R/O need for HH upon DC (?) Likely home w/family when medically cleared. GIOVANNI Rivera Discharge Planning/Care Management CM Discharge Assessment Start: 10/05/18 15:35 Freq: Status: Active Protocol: Document 10/05/18 15:35 CECELIA (Rec: 10/05/18 15:38 [id number]) Discharge Planning Assessment Assigned Secretarial Stenographer GIOVANNI Alberto DPOA/Assigned Designee Name No DPOA. Dtrs Francesca Victor [place] and Lionel Burroughs [place] Contact Information Lisy: [phone] Sharon: [phone] Advance Directives? No History Provided By Patient Family Member Medical Record Prior Living Arrangements House Household Members none Type of transporation used prior to Drives own vehicle admit Independent with ADL's Yes Is patient alert and oriented? Yes Barriers to Discharge Yes Comment Falls and weakness Whiteboard Updated in Patient Room with Yes name and ext. # of Secretarial Stenographer Review Status In Process
--- NOTE | 2018-10-05 17:00 | PT.IIE ---
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 of left eye (Acute) Type 2 diabetes, uncontrolled, with neuropathy (Acute) BPH (benign prostatic hyperplasia) (Chronic Unknown) Diverticular disease (Chronic Unknown) Hearing loss (Chronic Unknown) Hyperlipemia (Chronic Unknown) Sleep apnea (Chronic Unknown) Skin cancer (Resolved Unknown) Squamous cell carcinoma (Resolved 01/2016) Physical Therapy Inpatient Evaluation/Re-Eval M1 PT/OT-IP Prior Functional Status Start: 10/05/18 16:03 Freq: NEEDED Status: Active Protocol: Document 10/05/18 16:03 NFW (Rec: 10/05/18 17:00 NFW [id number]) Medical Review Prior Functional Status Medical History Reviewed Yes Mobility and Gait Prior to recent admittance patient ambulated around the home and outside without any assistive devices. Activities of Daily Living and IADL's Patient states independence in all IADLs. 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 The patient tries to walk for exercise 1 1 /2 to 2 miles 4x/wk. He drives and does all his own errands. Social History Household Members none Living Arrangements House Number of Floors (Floors) Two Floors Number of Stairs To Enter/Railing? 2 steps to enter the front door, hand rails on both sides . 2 steps to enter from garage, no handrail. Home Environment Standard Height Toilet Walk in Shower Home Equipment Manual Wheelchair Raised Toilet Seat w/Armrests Hand Held Shower Grab Bars In Shower Employment Status Retired Additional Social History Comment Patient able to live on the main level of his home. Daughter Lissy present during evaluation. She lives in [place]. M2 PT-IP Current Condition Start: 10/05/18 16:03 Freq: NEEDED Status: Active Protocol: Document 10/05/18 16:03 NFW (Rec: 10/05/18 17:00 NFW [id number]) Physical Therapy Current Condition Current Condition Evaluation Date 10/05/18 Treatment Diagnosis Generalized weakness with recurring falls. Weight Bearing Status Weight Bearing Status Weight Bear as Tolerated M3 PT-IP Subjective Start: 10/05/18 16:03 Freq: NEEDED Status: Active Protocol: Document 10/05/18 16:03 NFW (Rec: 10/05/18 17:00 NFW [id number]) Subjective Physical Therapy Visit Type Type Initial Evaluation Visit Start Time 15:20 Visit Stop Time 16:00 Total Visit Minutes 40 Number of PREVENTION RN Visits 0 Physical Therapy Visit Comments Patient Comments Feels weak, stating concerns of his recent falls with difficulty getting back to standing. Patient Goals Return home. Therapy Pain Assessment Pain When Pain Assessed At Rest Pain Present Pain Present Denied Pain M4 PT-IP Mobility and Gait Start: 10/05/18 16:03 Freq: NEEDED Status: Active Protocol: Document 10/05/18 16:03 NFW (Rec: 10/05/18 17:00 NFW [id number]) PT-Bed Mobility Assessment Rolling Type of Rolling Roll to Left Level of Assist Contact Guard Assistance 1 Person Assistance Supine to Sit Supine to Sit Minimal Assistance 1 Person Assistance Sit to Supine Sit to Supine Contact Guard Assistance 1 Person Assistance Scooting Scooting to Edge of Bed Contact Guard Assistance Scooting Up and Down in Bed Contact Guard Assistance PT-Transfer Assessment Sit to and From Stand Sit to and from Stand Contact Guard Assistance 1 Person Assistance Equipment Transfer Assistive Device Gait Belt Front Wheeled Walker Orthotic/Prosthetic Devices or Brace: No Transfers Transfer Destination Bed Chair Toilet Transfer Ability Level of Assist Contact Guard Assistance 1 Person Assistance Comments Mobility Comments Patient able to walk to toilet , stand to urinate, then walk to sink to wash his hands then to chair using FWW. Gait Assessment Gait Gait Assistance Required: Contact Guard Assist Distance (Feet) 20 Able to Maintain Weight Bearing Status No During Gait Assistive Devices Assistive Device Gait Belt Front Wheeled Walker Orthotic/Prosthetic Devices or Brace: No Gait Deviations General Gait Pattern Within Normal Limits Comments Gait Comments Had patient ambulate short distance without FWW and did well. PT-Balance Assessment Sitting Balance and Reactions Static Sitting Balance Ability Normal Dynamic Sitting Balance Ability Normal Standing Balance and Reactions Static Standing Balance Ability Normal Dynamic Standing Balance Ability Normal Comments Other Balance Tests/Deviations/Treatment Bilateral overhead reach : without difficulty. Side stepping without use of walker . Marching without walker, no difficulty. Toe walking for a few steps, no difficulty. Able to look over each shoulder and maintain balance. Able to perform 360 degree [place] each direction with SBA only. Standing with eyes closed x 20 seconds. M5 PT-IP Objective Assessments Start: 10/05/18 16:03 Freq: NEEDED Status: Active Protocol: Document 10/05/18 16:03 NFW (Rec: 10/05/18 17:00 NFW [id number]) Orientation Orientation/Cognition Level of Alertness Alert Orientation Name Month Date Year Day of Week Place Language Function Ability No Deficits Noted Memory Description No Deficits Noted Gross Range of Motion Upper Extremity ROM Assessment Within Functional Limits Lower Extremity ROM Assessment Within Functional Limits Strength Lower Extremity Strength Assessment Left Impaired Comments Strength Comments Left hip flexors, AT slightly weaker on left vs right. Muscle Tone Muscle Tone WNL Yes M7 PT-IP Assessment and Plan Start: 10/05/18 16:03 Freq: NEEDED Status: Active Protocol: Document 10/05/18 16:03 NFW (Rec: 10/05/18 17:00 NFW [id number]) PT Summary Assessment and Plan Potential Rehabilitation Potential Excellent Status of Condition at Evaluation Evolving Summary Impairments Balance Coordination Transfers Gait Activity Tolerance Progress Towards Goals Progressing Toward Goals Assessment Summary Patient that has had recurrent falls, no fractures but residual soreness from falls that is feeling better and stronger. Confidence in his abilities to perform transitional activities and ambulation has also been affected. Should do well with treatment and repetition of activities. Goals Bed Mobility Goal Independent Transfer Goal Independent Gait Goal Independent Gait Distance 150 Days to Meet Goals 2 Frequency of Treatment Frequency Of Treatment Twice a Day Treatment Plan Physical Therapy Treatment Plan Bed Mobility Training Transfer Training Gait Training Therapeutic Exercise Balance Retraining Coordination Retraining Other Recommendations and Next Treatment Ambulation outside of room. Focus Recommendations To Nursing Amount of Assist Needed 1 Person Assist Discharge Recommendations PT Discharge Recommendations Home Home with Assistance Equipment Needed for Home Before FWW Discharge
[2018-10-05] MEDS: MAG HYDROX/ALUM/SIMETH 30 ML UDC PO (19:42)
[2018-10-05] MEDS: BISACODYL 5 MG TABLET 10 MG PO (19:42)
[2018-10-05] MEDS: LOVASTATIN 20 MG TABLET PO (19:43)
[2018-10-06] VITALS (10 sets, daily range): BP systolic 110–140; BP diastolic 40–64; PULSE 53–62; RESP 16–18; TEMP 36.3–37.4; O2SAT 92–97
[2018-10-06] MEDS: ACETAMINOPHEN 325 MG TABLET 650 MG PO (03:59)
[2018-10-06] MEDS: SODIUM CHLORIDE 0.9% 1,000 ML 100 ML IV ×2 (04:02→14:20)
[2018-10-06 06:14] LABS: Add Manual Diff / Slide Review NO; Basophils Absolute Auto 0 /uL (0-100); Basophils Percent Auto 0.7 % (0-2); Eosinophils Absolute Auto 100 /uL (0-450); Eosinophils Percent Auto 1.7 % (2-4); Hematocrit 33.5 % (41-53); Hemoglobin 11.4 g/dL (13.5-17.5); Lymphocytes Absolute Auto 500 /uL (1100-4500); Lymphocytes Percent Auto 9.8 % (25-40); Mean Corpuscular Hemoglobin 30.9 PG (26-34); Mean Corpuscular Volume 90.9 fL (80-100); Monocytes Absolute Auto 600 /uL (0-900); Monocytes Percent Auto 12.4 % (3-14); Neutrophils Absolute Auto 3500 /uL (1500-7000); Neutrophils Percent Auto 75.4 % (50-75); Platelet Count 106 X10^3/uL (150-400); Red Blood Cell Count 3.68 X10^6/uL (4.5-5.9); Red Cell Distribution Width 14.3 % (11.6-14.8); White Blood Cell Count 4.6 X10^3/uL (4.5-11.0)
[2018-10-06 06:25] LABS: Alanine Aminotransferase 107 IU/L (21-72); Albumin 3.1 g/dL (3.5-5.0); Albumin Globulin Ratio 1.1 (1.0-2.8); Alkaline Phosphatase 136 U/L (38-126); Aspartate Aminotransferase 73 IU/L (17-59); Bilirubin Total 0.6 mg/dL (0.2-1.3); Blood Urea Nitrogen 18 mg/dL (9-20); Calcium 7.5 mg/dL (8.4-10.2); Carbon Dioxide 21 mmol/L (22-32); Chloride 107 mmol/L (98-107); Estimated Glomerular Filt Rate > 60.0 mL/min (>60); Globulin 2.7 g/dL (1.7-4.1); Glucose 132 mg/dL (80-110); HEMOLYSIS < 15 (0-50); Potassium 3.6 mmol/L (3.4-5.1); Sodium 135 mmol/L (137-145); Total Protein 5.8 g/dL (6.3-8.2)
[2018-10-06] MEDS: CEFTRIAXONE 1 GM/50 ML FROZ.PIGGY IV (08:58)
[2018-10-06] MEDS: METOPROLOL ER 25 MG TABLET PO (08:59)
[2018-10-06] MEDS: ASPIRIN EC 81 MG TABLET PO (08:59)
[2018-10-06] MEDS: TAMSULOSIN 0.4 MG CAPSULE 0.8 MG PO (09:00)
[2018-10-06] MEDS: VIT C/E/ZN/COPPR/LUTEIN/ZEAXAN CAPSULE 1 CAP PO (09:00)
[2018-10-06] MEDS: ENOXAPARIN 40 MG/0.4 ML SYRINGE SUBCUT (09:01)
[2018-10-06] MEDS: INSULIN ASPART 100 UNIT/ML INSULN PEN SUBCUT ×4 (09:03→21:05)
--- NOTE | 2018-10-06 12:25 | PC.NURSE ---
Day Shift- Pt A&OX4, able to make needs known using call light, high fall risk precautions in place, bed alarm on at all times. Pt OOB with PT with 1PA using FWW. Pt ate approx 50% of breakfast and stating has no appetite for lunch, however did have nearly all of hte side fruit dish and hot chocolate, saving sorbet for a little later, denies nausea. Pt asking questions regarding sliding scale insulin and new diabetes control. Asking if a cafe aide is available at the hospital. This communications writer did mention that a Pie Crust Mixer consult has already been order and will most likely assess after the Holiday. Pt agreeable. Pt does c/o chronic low back pain, repositioning in bed and chair offered, pt states nothing has helped. Will monitor. Non distressing at this time.
--- NOTE | 2018-10-06 12:52 | PT.IPTN ---
Physical Therapy Treatment Note M2 PT-IP Current Condition Start: 10/05/18 16:03 Freq: NEEDED Status: Active Protocol: Document 10/05/18 16:03 NFW (Rec: 10/05/18 17:00 NFW [id number]) Physical Therapy Current Condition Current Condition Evaluation Date 10/05/18 Treatment Diagnosis Generalized weakness with recurring falls. Weight Bearing Status Weight Bearing Status Weight Bear as Tolerated M3 PT-IP Subjective Start: 10/05/18 16:03 Freq: NEEDED Status: Active Protocol: Document 10/06/18 11:25 CLB (Rec: 10/06/18 12:52 CLB [id number]) Subjective Physical Therapy Visit Type Type Treatment Note Visit Start Time 11:25 Visit Stop Time 11:39 Total Visit Minutes 19 Number of FRONT END WEB DESIGNER Visits 1 Physical Therapy Visit Comments Patient Comments Pt up in BR with VALLEZ FILTER OPERATOR and agreeable to ambulate with therapy. Therapy Pain Assessment Pain When Pain Assessed At Rest Pain Present Pain Present Denied Pain M4 PT-IP Mobility and Gait Start: 10/05/18 16:03 Freq: NEEDED Status: Active Protocol: Document 10/06/18 11:25 CLB (Rec: 10/06/18 12:52 CLB [id number]) PT-Bed Mobility Assessment Sit to Supine Sit to Supine Standby Assistance 1 Person Assistance PT-Transfer Assessment Sit to and From Stand Sit to and from Stand Contact Guard Assistance 1 Person Assistance Equipment Transfer Assistive Device Gait Belt Orthotic/Prosthetic Devices or Brace: No Transfers Transfer Destination Bed Transfer Ability Level of Assist Contact Guard Assistance 1 Person Assistance Comments Mobility Comments Pt up with VALLEZ FILTER OPERATOR only using IV pole to ambulate. Pt able to manage IV pole and stand SBA at sink to wash his hands. Gait Assessment Gait Gait Assistance Required: Contact Guard Assist Distance (Feet) 250 Able to Maintain Weight Bearing Status No During Gait Assistive Devices Assistive Device Gait Belt Orthotic/Prosthetic Devices or Brace: No Gait Deviations General Gait Pattern Within Normal Limits Comments Gait Comments Pt ambulated ~250ft with use of IV pole and CGA. M5 PT-IP Objective Assessments Start: 10/05/18 16:03 Freq: NEEDED Status: Active Protocol: Document 10/05/18 16:03 NFW (Rec: 10/05/18 17:00 NFW [id number]) Orientation Orientation/Cognition Level of Alertness Alert Orientation Name Month Date Year Day of Week Place Language Function Ability No Deficits Noted Memory Description No Deficits Noted Gross Range of Motion Upper Extremity ROM Assessment Within Functional Limits Lower Extremity ROM Assessment Within Functional Limits Strength Lower Extremity Strength Assessment Left Impaired Comments Strength Comments Left hip flexors, AT slightly weaker on left vs right. Muscle Tone Muscle Tone WNL Yes M6 PT-IP Treatment Start: 10/05/18 16:03 Freq: NEEDED Status: Active Protocol: Document 10/06/18 11:25 CLB (Rec: 10/06/18 12:52 CLB [id number]) Physical Therapy Treatment Exercises Exercises Gluteal Sets Quad Sets M7 PT-IP Assessment and Plan Start: 10/05/18 16:03 Freq: NEEDED Status: Active Protocol: Document 10/06/18 11:25 CLB (Rec: 10/06/18 12:52 CLB [id number]) PT Summary Assessment and Plan Potential Rehabilitation Potential Excellent Status of Condition at Evaluation Evolving Summary Impairments Balance Coordination Transfers Gait Activity Tolerance Progress Towards Goals Progressing Toward Goals Assessment Summary Pt increased ambulation to ~ 250ft requiring CGA. Pt used IV pole during ambulation and was able to manage in ferrera with good safety awareness. Pt required CGA for sit<>stand and is SBA for all bed mobility. Goals Bed Mobility Goal Independent Transfer Goal Independent Gait Goal Independent Gait Distance 150 Days to Meet Goals 2 Frequency of Treatment Frequency Of Treatment Twice a Day Treatment Plan Physical Therapy Treatment Plan Bed Mobility Training Transfer Training Gait Training Therapeutic Exercise Balance Retraining Coordination Retraining Other Recommendations and Next Treatment Ambulation and stairs training Focus . Recommendations To Nursing Amount of Assist Needed 1 Person Assist Discharge Recommendations PT Discharge Recommendations Home Home with Assistance Equipment Needed for Home Before FWW Discharge
--- NOTE | 2018-10-06 16:13 | P.PN_ITS ---
Subjective Date Patient Seen: 10/06/18 Interval history: Patient is 83-year-old male admitted with fever and sepsis. He is feeling better and fever seems to be resolving. He is complaining of lower back pain just since admission which he attributes to laying on the hospital bed. Exam Vital Signs (past 8 hours): - 10/06/18 08:50 10/06/18 12:00 10/06/18 15:50 Temperature 97.8 F 98.0 F Pulse Rate 53 L 61 Respiratory Rate 16 17 Blood Pressure 127/58 L 140/64 Pulse Oximetry 97 97 92 Oxygen Delivery Method Room Air Oxygen Flow Rate 0 Narrative Exam Narrative: GENERAL: Patient is in no acute distress HEENT: Head normocephalic, atraumatic. Mucous membranes moist. CHEST: Clear to auscultation bilaterally. CARDIAC: Regular rate and rhythm. ABDOMEN: Nondistended, soft, nontender EXTREMITIES: no edema. no swollen, red or hot joints. NEUROLOGICAL: Alert, pleasant, no focal findings SKIN: Warm, dry, no petechiae, no rash, no open wound Objective Labs Result Diagrams: 10/06/18 05:54 10/06/18 05:54 Labs: Laboratory Results - last 24 hr 10/06/18 10/06/18 10/06/18 05:54 05:54 05:54 WBC 4.6 RBC 3.68 L Hgb 11.4 L Hct 33.5 L MCV 90.9 MCH 30.9 MCHC 34.0 RDW 14.3 Plt Count 106 L Neut % (Auto) 75.4 H Lymph % (Auto) 9.8 L [place] % (Auto) 12.4 Eos % (Auto) 1.7 L Baso % (Auto) 0.7 Neut # (Auto) 3500 Lymph # (Auto) 500 L [place] # (Auto) 600 Eos # (Auto) 100 Baso # (Auto) 0 Sodium 135 L Potassium 3.6 Chloride 107 Carbon Dioxide 21 L BUN 18 Creatinine 1.00 Estimated GFR > 60.0 BUN/Creatinine Ratio 18.0 Glucose 132 H Calcium 7.5 L Total Bilirubin 0.6 AST 73 H ALT 107 H Alkaline Phosphatase 136 H Total Protein 5.8 L Albumin 3.1 L Globulin 2.7 Albumin/Globulin Ratio 1.1 Procalcitonin 0.70 H Assessment & Plan Assessment & Plan narrative: 1. Sepsis with acute organ dysfunction -responding to antibiotic with improvement of weakness and fever, procalcitonin 2.96 on admit, trending down to 0.70 -unknown source, but possibly acute prostatitis, patient presenting only with fever, rigors and weakness -blood cultures were not obtained in the ER (patient family informed) -urinalysis with few bacteria, 1+ mucus, no WBC, culture not indicated -chest x-ray normal, abdominal ultrasound with fatty liver otherwise normal, echo unremarkable -continue Rocephin 1 g Q 24 hours -obtain stat blood cultures for recurrent fever, also consider lumbar MRI if recurrent fever and/or worsening of lower back pain -consider acute prostatitis as source of fever as patient has history of BPH and does have at least a few bacteria in the urine 2. Transaminitis, acute -likely sepsis related, improving -also noted fatty liver findings on abdominal ultrasound 3. Diabetes type 2 with neuropathy, uncontrolled, present on admission, chronic -glucose under ER chemistries is 229. Patient has neuropathy of bilateral toes. -A1c 7.3 this admission -patient is diet controlled at home -continue fingersticks ACHS and cover with sliding scale insulin medium range -diabetic diet, medium carbohydrate 4. Thrombocytopenia, mild, acute -due to sepsis with platelets staying above 100 Patient with improvement in hospital course. Likely discharge tomorrow Sunday on oral antibiotics if no fever. Quality VTE Deep Vein Thrombosis/Pulmonary Embolism Present on Admission: No
--- NOTE | 2018-10-06 16:42 | PT.IPTN ---
Physical Therapy Treatment Note M2 PT-IP Current Condition Start: 10/05/18 16:03 Freq: NEEDED Status: Active Protocol: Document 10/05/18 16:03 NFW (Rec: 10/05/18 17:00 NFW [id number]) Physical Therapy Current Condition Current Condition Evaluation Date 10/05/18 Treatment Diagnosis Generalized weakness with recurring falls. Weight Bearing Status Weight Bearing Status Weight Bear as Tolerated M3 PT-IP Subjective Start: 10/05/18 16:03 Freq: NEEDED Status: Active Protocol: Document 10/06/18 15:10 CLB (Rec: 10/06/18 16:42 CLB [id number]) Subjective Physical Therapy Visit Type Type Treatment Note Visit Start Time 15:10 Visit Stop Time 15:30 Total Visit Minutes 20 Number of WIRE MACHINE OPERATOR Visits 2 Physical Therapy Visit Comments Patient Comments Pt agreeable to ambulate with therapy. States he feel a little nauseous and weak but wants to get out of bed. Therapy Pain Assessment Pain When Pain Assessed At Rest Pain Present Pain Present Denied Pain M4 PT-IP Mobility and Gait Start: 10/05/18 16:03 Freq: NEEDED Status: Active Protocol: Document 10/06/18 15:10 CLB (Rec: 10/06/18 16:42 CLB [id number]) PT-Bed Mobility Assessment Rolling Type of Rolling Roll to Left Level of Assist Contact Guard Assistance 1 Person Assistance Supine to Sit Supine to Sit Minimal Assistance 1 Person Assistance Sit to Supine Sit to Supine Standby Assistance 1 Person Assistance Scooting Scooting to Edge of Bed Standby Assistance Scooting Up and Down in Bed Standby Assistance PT-Transfer Assessment Sit to and From Stand Sit to and from Stand Contact Guard Assistance 1 Person Assistance Equipment Transfer Assistive Device Gait Belt Front Wheeled Walker Transfers Transfer Destination Bed Toilet Transfer Ability Level of Assist Contact Guard Assistance 1 Person Assistance Gait Assessment Gait Gait Assistance Required: Standby Assistance Distance (Feet) 225 Able to Maintain Weight Bearing Status No During Gait Assistive Devices Assistive Device Gait Belt Front Wheeled Walker Orthotic/Prosthetic Devices or Brace: No Gait Deviations General Gait Pattern Within Normal Limits Comments Gait Comments Pt more fatigued this afternoon, ambulated ~225ft/ FWW/SBA Stair Climbing Assessment Evaluation Level of Assist On Stairs Contact Guard Assistance 1 Person Assistance Devices Stair Climbing Assistive Devices Left Railing Right Railing Technique/Endurance Stair Climbing Direction Ascend and Descend Stair Climbing Technique Step Over Step Number of Steps Climbed 3 Query Text: Stair Climbing Set # Repetitions (reps) 2 M5 PT-IP Objective Assessments Start: 10/05/18 16:03 Freq: NEEDED Status: Active Protocol: Document 10/05/18 16:03 NFW (Rec: 10/05/18 17:00 NFW [id number]) Orientation Orientation/Cognition Level of Alertness Alert Orientation Name Month Date Year Day of Week Place Language Function Ability No Deficits Noted Memory Description No Deficits Noted Gross Range of Motion Upper Extremity ROM Assessment Within Functional Limits Lower Extremity ROM Assessment Within Functional Limits Strength Lower Extremity Strength Assessment Left Impaired Comments Strength Comments Left hip flexors, AT slightly weaker on left vs right. Muscle Tone Muscle Tone WNL Yes M6 PT-IP Treatment Start: 10/05/18 16:03 Freq: NEEDED Status: Active Protocol: Document 10/06/18 11:25 CLB (Rec: 10/06/18 12:52 CLB [id number]) Physical Therapy Treatment Exercises Exercises Gluteal Sets Quad Sets M7 PT-IP Assessment and Plan Start: 10/05/18 16:03 Freq: NEEDED Status: Active Protocol: Document 10/06/18 15:10 CLB (Rec: 10/06/18 16:42 CLB [id number]) PT Summary Assessment and Plan Summary Progress Towards Goals Progressing Toward Goals Assessment Summary Pt needed Min A sup-sit and SBA for all other bed mobility . Pt required SBA during ambulation W/FWW. Pt used toilet having BM and able to perform own pericare. Goals Bed Mobility Goal Independent Transfer Goal Independent Gait Goal Independent Gait Distance 150 Days to Meet Goals 2 Frequency of Treatment Frequency Of Treatment Twice a Day Treatment Plan Physical Therapy Treatment Plan Bed Mobility Training Transfer Training Gait Training Therapeutic Exercise Balance Retraining Coordination Retraining Other Recommendations and Next Treatment ambulation Focus Recommendations To Nursing Amount of Assist Needed 1 Person Assist Discharge Recommendations PT Discharge Recommendations Home Home with Assistance Equipment Needed for Home Before FWW Discharge
[2018-10-06] MEDS: ONDANSETRON 4 MG/2 ML INJ IV (17:13)
--- NOTE | 2018-10-06 19:48 | PC.NURSE ---
Evening shift report received, care assumed. Pt. ambulating in hallway with PT at time of report. At time of initial assessment, pt A&O x3. Family at bedside. No c/o pain. VSS, afebrile. C/o mild dyspnea and nausea. Lung sounds diminished throughout. Oxygen sat 89-90% on room air; 1 LNC applied, sat 93-94%. Encouraged turn/cough/deep breathe, sitting up, and ambulation. Declined Zofran for nausea initially; attempted to eat dinner, experienced dry heaves, received Zofran. Nausea relieved, still reports little to no appetite. Jose Alfredo Hurst informed as to nausea and SOB. Order received for saline lock.
[2018-10-06] MEDS: LOVASTATIN 20 MG TABLET PO (21:04)
[2018-10-07] VITALS: BP 108/49; PULSE 61; RESP 18; TEMP 37.4; O2SAT 92
--- NOTE | 2018-10-07 01:54 | DI.RAD.S_ITS ---
PROCEDURE: XR CHEST 1V INDICATIONS: sob TECHNIQUE: One view of the chest was acquired. COMPARISON: [facility], CR, XR CHEST 1V, 10/04/2018, 20:26. FINDINGS: Surgical changes and devices: None. Lungs and pleura: Interval development of patchy ill-defined opacities at the bilateral lung bases, worse on the right.. No pleural effusions or pneumothorax. Mediastinum: Mediastinal contours appear normal. Heart size is normal. Bones and chest wall: No suspicious bony lesions. Overlying soft tissues appear unremarkable. IMPRESSION: Interval development of patchy bibasilar opacities, more pronounced on the right. Findings are present developing airspace disease/pneumonia. Recommend followup imaging 4-6 weeks after treatment to document resolution of findings. Dictated by: Alex Merida M.D. on 10/07/2018 at 8:13 Approved by: Alex Merida M.D. on 10/07/2018 at 8:15
--- NOTE | 2018-10-07 01:57 | PC.NURSE ---
Patient complains of shortness of breath and feeling as if he cannot take a deep breath. RESTORATIVE REHAB AIDE Jcarlos Hurst notified. RESTORATIVE REHAB AIDE came to assess the patient and ordered a STAT EKG and Chest xray. Oxygen increased to 3 Liters and saturation maintaining at 95%.
[2018-10-07 05:30] VITALS: BP 140/59; PULSE 63; RESP 16; TEMP 36.3; O2SAT 96
[2018-10-07 07:50] VITALS: BP 143/89; PULSE 66; RESP 16; TEMP 36.6; O2SAT 95
--- NOTE | 2018-10-07 08:50 | PM.DS.1 ---
History of Present Illness Date Patient Seen: 10/07/18 Chief complaint: Multiple Falls Narrative: Jim saini is an 83-year-old male with a history of cardiovascular disease, prior inferior MA, elevated PSA, hyperlipidemia, diabetes type 2 with neuropathy, sleep apnea and macular degeneration who presents to the ER with weakness and rigors. The patient states his symptoms began 2 days ago with generalized profound weakness and chills and general malaise. He states his symptoms lessened and he thought he was getting better but reoccurred the following morning. The patient reports he fell at least a dozen times indicating he would try to get up and his knees would collapse. Continued to have fevers and shaking chills but denies headaches or dizziness, nasal congestion or sore throat. He notes difficulty hearing and has hearing aids not present today. He reports no complaints of chest pain or palpitations and has had shortness of breath and denies cough. Reports no nausea or vomiting but has not had bowel movement since 3 days ago. He indicates he is eaten much or consumed fluids for the last 2 days due to his weakness. He does indicate he has little food in the house. He does acknowledge slow urination and nocturia 2-4 times nightly. The patient was brought into the ER by EMS was found to be febrile with temperature 101.5? heart rate of 83, blood pressure 129/65, respirations of 16 with a room air saturation 98%. On laboratory analysis the patient had a normal white count of 7.0 with hemoglobin of 13.4 and hematocrit of 39.2 and platelets 128. His chemistries notable for mildly low sodium at 1:32 a.m. and a BUN of 24 with a creatinine 1.2 and blood sugar of 229. He has an elevated total bili at 1.4 with an AST of 1 27, ALT 142 and alkaline phosphatase at 130. He had an elevated procalcitonin at 2.73 and initial lactate 1.5 and on remeasurement 3.2. His urinalysis was unremarkable as was his chest x-ray which showed no acute pulmonary disease. had an abdominal ultrasound that was completed with no significant findings of biliary obstruction, cholelithiasis or ductal thickening. The patient is admitted for further evaluation of fever of unknown origin, positive infection indicators, weakness and dehydration. Discharge Providers Date of admission: 10/05/18 02:39 Discharge Date: 10/07/18 Primary care physician: Linda Toure DO Consults: 10/05/18 03:45 Consult to Dietitian, Adult Routine Comment: Reason For Exam: untreated diabetic Consult to Discharge Planning Routine Comment: 10/05/18 03:46 Consult to Physical Therapy Evaluate & Treat Comment: weakness, falls Physician Instructions: Evaluate and Treat Consult to Feed Crusher Routine Comment: Info on Advanced Directive, safety of home setting Discharge provider: Heike Vieyra MD Summary Discharge Diagnosis: 1. Sepsis secondary to community-acquired pneumonia 2. Community-acquired pneumonia 3. Hyperlipidemia 4. History of coronary disease, history of prior myocardial infarction 5. Hypertension 6. Macular degeneration 7. BPH 8. Obstructive sleep apnea 9. Type 2 diabetes, new diagnosis, started metformin Hospital Course: The patient is a 83-year-old male with a history of coronary disease, prior MA, obstructive sleep apnea, macular degeneration who presented to the hospital with fever and rigors. The patient unfortunately did not have blood cultures obtained at admission. However he was started on IV antibiotics. His initial chest x-ray was negative. His white count was normal. His initial procalcitonin was 2.96. Patient reports having a history of pneumonia in May. He subsequently had a recurrent episode in early June which lasted about a month. Here in the hospital he continued to have intermittent cough. Last evening the patient reported some chest pressure and difficulty breathing. He was found to be hypoxic. His chest x-ray was repeated this morning which confirmed bibasilar infiltrates. The patient had an improvement of his procalcitonin from 2.96-0.7. He was no longer febrile. Overall he felt significantly improved. His rest and exercise oximetry was normal. The patient overall felt significantly improved and was deemed appropriate for discharge home. During the hospital stay the patient's blood sugars were elevated. His hemoglobin A1c was 7.3. The patient will follow up with his PCP Dr. Toure for follow-up of his pneumonia and further evaluation of his type 2 diabetes. In addition he will be referred to diabetic Education for outpatient evaluation. Exam Vital Signs (past 8 hours): - 10/07/18 05:30 10/07/18 07:50 Temperature 97.4 F L 98 F Pulse Rate 63 66 Respiratory Rate 16 16 Blood Pressure 140/59 L 143/89 H Pulse Oximetry 96 95 Oxygen Delivery Method Nasal Cannula Oxygen Flow Rate 2.5 Narrative Exam Narrative: Pleasant gentleman resting comfortably in no obvious distress Lungs: Decreased breath sounds with right basilar crackles Cardiac exam: Regular rate rhythm normal S1-S2 Abdomen: Soft nontender nondistended Extremities: No edema Objective Imaging Chest x-ray: My impression: Bibasilar infiltrate Radiologist's impression: Bibasilar infiltrate Labs Result Diagrams: 10/06/18 05:54 10/06/18 05:54 Discharge Plan Discharge Plan Patient Disposition: Home Discharge comment: 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 F/U with Dr. Toure in 1 week F/U Chest Xray at appointment, Also to discuss new diagnosis of diabetes Discharge Med Rec/Prescriptions Prescriptions: New levofloxacin 750 mg tablet 750 mg PO DAILY 4 Days Qty: 4 RF: 0 metformin [Glucophage] 500 mg tablet 250 mg PO BID Qty: 60 RF: 0 miscellaneous medical supply kit .ROUTE .MEDSUPPLY Qty: 1 RF: 0 Continued aspirin [Adult Aspirin Regimen] 81 mg tablet,delayed release (DR/EC) 81 mg PO DAILY RF: 0 benzonatate [Tessalon Perles] 100 mg capsule 100 mg PO TID PRN (Reason: cough) Qty: 30 RF: 0 Fish Oil (#FISH OIL) 1 iu PO QDAY Qty: 0 RF: 0 PreserVision AREDS-2 1 EACH capsule 1 ea PO Qty: 0 RF: 0 metoprolol succinate [Toprol XL] 25 mg tablet extended release 24 hr 25 mg PO QDAY Qty: 90 RF: 1 tamsulosin [Flomax] 0.4 mg capsule 0.8 mg PO DAILY Qty: 180 RF: 0 lovastatin 20 mg tablet 20 mg PO DAILY Qty: 90 RF: 1 Follow up/Referrals: Linda Toure DO [Primary Care Provider] - Provider Discharge Instructions Diet: Carb-consistent/Diabetic, Low-sodium and Low-cholesterol Activity: as tolerated Oxygen: Not indicated Skin/Wound/Dressing Care Report to your healthcare provider any signs of infection, such as:: chills, fever and night sweats Discharge Data Primary Care Provider: Linda Toure Attending Provider: Jcarlos Hurst Admit Date/Time: 10/05/18 02:39 Quality VTE Deep Vein Thrombosis/Pulmonary Embolism Present on Admission: No
[2018-10-07 09:00] VITALS: O2SAT 94
[2018-10-07] MEDS: INSULIN ASPART 100 UNIT/ML INSULN PEN SUBCUT (09:05)
[2018-10-07] MEDS: CEFTRIAXONE 1 GM/50 ML FROZ.PIGGY IV (09:05)
[2018-10-07] MEDS: ENOXAPARIN 40 MG/0.4 ML SYRINGE SUBCUT (09:05)
[2018-10-07] MEDS: DOCUSATE 100 MG CAPSULE PO (09:06)
[2018-10-07] MEDS: VIT C/E/ZN/COPPR/LUTEIN/ZEAXAN CAPSULE 1 CAP PO (09:06)
[2018-10-07] MEDS: METOPROLOL ER 25 MG TABLET PO (09:06)
[2018-10-07] MEDS: TAMSULOSIN 0.4 MG CAPSULE 0.8 MG PO (09:06)
[2018-10-07] MEDS: ASPIRIN EC 81 MG TABLET PO (09:06)
[2018-10-07] MEDS: SODIUM CHLORIDE 0.9% FLUSH 10 ML IV (09:06)
--- NOTE | 2018-10-07 10:24 | CM.DPC ---
DCP/continued: Reviewed chart. Per MD in AM rounds patient medically stable to discharge today. Met with patient and family at [facility] to confirm plan. GRACIELA signed by patient. No additional needs identified. P: Home today. GIOVANNI Jaeger
--- NOTE | 2018-10-07 10:59 | PT.IPTN ---
Physical Therapy Treatment Note M2 PT-IP Current Condition Start: 10/05/18 16:03 Freq: NEEDED Status: Active Protocol: Document 10/05/18 16:03 NFW (Rec: 10/05/18 17:00 NFW [id number]) Physical Therapy Current Condition Current Condition Evaluation Date 10/05/18 Treatment Diagnosis Generalized weakness with recurring falls. Weight Bearing Status Weight Bearing Status Weight Bear as Tolerated M3 PT-IP Subjective Start: 10/05/18 16:03 Freq: NEEDED Status: Active Protocol: Document 10/07/18 10:20 CLB (Rec: 10/07/18 10:58 CLB [id number]) Subjective Physical Therapy Visit Type Type Treatment Note Visit Start Time 10:20 Visit Stop Time 10:23 Total Visit Minutes 23 Number of CASKET INSPECTOR Visits 3 Physical Therapy Visit Comments Patient Comments Pt agreeable to ambulate. Therapy Pain Assessment Pain When Pain Assessed At Rest Pain Present Pain Present Denied Pain M4 PT-IP Mobility and Gait Start: 10/05/18 16:03 Freq: NEEDED Status: Active Protocol: Document 10/07/18 10:20 CLB (Rec: 10/07/18 10:58 CLB [id number]) PT-Bed Mobility Assessment Supine to Sit Supine to Sit Standby Assistance Scooting Scooting to Edge of Bed Standby Assistance PT-Transfer Assessment Sit to and From Stand Sit to and from Stand Standby Assistance Equipment Transfer Assistive Device Gait Belt Orthotic/Prosthetic Devices or Brace: No Transfers Transfer Destination Chair Transfer Ability Level of Assist Standby Assistance Comments Mobility Comments Pt improved with bed mobility requiring SBA. Gait Assessment Gait Gait Assistance Required: Standby Assistance Distance (Feet) 225 Able to Maintain Weight Bearing Status No During Gait Assistive Devices Assistive Device Gait Belt Orthotic/Prosthetic Devices or Brace: No Gait Deviations General Gait Pattern Within Normal Limits Comments Gait Comments Pt ambulated in ferrera as he managed IV pole SBA. Stair Climbing Assessment Evaluation Level of Assist On Stairs Standby Assistance Devices Stair Climbing Assistive Devices Left Railing Right Railing Technique/Endurance Stair Climbing Direction Ascend and Descend Stair Climbing Technique Step Over Step Number of Steps Climbed 3 Query Text: Stair Climbing Set # Repetitions (reps) 1 M5 PT-IP Objective Assessments Start: 10/05/18 16:03 Freq: NEEDED Status: Active Protocol: Document 10/05/18 16:03 NFW (Rec: 10/05/18 17:00 NFW [id number]) Orientation Orientation/Cognition Level of Alertness Alert Orientation Name Month Date Year Day of Week Place Language Function Ability No Deficits Noted Memory Description No Deficits Noted Gross Range of Motion Upper Extremity ROM Assessment Within Functional Limits Lower Extremity ROM Assessment Within Functional Limits Strength Lower Extremity Strength Assessment Left Impaired Comments Strength Comments Left hip flexors, AT slightly weaker on left vs right. Muscle Tone Muscle Tone WNL Yes M6 PT-IP Treatment Start: 10/05/18 16:03 Freq: NEEDED Status: Active Protocol: Document 10/07/18 10:20 CLB (Rec: 10/07/18 10:58 CLB [id number]) Physical Therapy Treatment Exercises Exercises Gluteal Sets Quad Sets M7 PT-IP Assessment and Plan Start: 10/05/18 16:03 Freq: NEEDED Status: Active Protocol: Document 10/07/18 10:20 CLB (Rec: 10/07/18 10:58 CLB [id number]) PT Summary Assessment and Plan Summary Assessment Summary Pt improved bed mobility requiring SBA. Pt O2 sats on RA at rest 88-89%, HR 68. Pt ambulated in frerera managing IV pole SBA ~225ft and performed stairs SBA. Pt O2 sats on RA during activity 91%, HR 75. Goals Bed Mobility Goal Independent Transfer Goal Independent Gait Goal Independent Gait Distance 150 Days to Meet Goals 2 Frequency of Treatment Frequency Of Treatment Twice a Day Treatment Plan Physical Therapy Treatment Plan Bed Mobility Training Transfer Training Gait Training Therapeutic Exercise Balance Retraining Coordination Retraining Other Recommendations and Next Treatment ambulation Focus Recommendations To Nursing Amount of Assist Needed 1 Person Assist Discharge Recommendations PT Discharge Recommendations Home Home with Assistance
[2018-10-07 12:19] VITALS: BP 127/63; PULSE 68; RESP 16; TEMP 37.2; O2SAT 92
--- NOTE | 2018-10-07 14:44 | DIET.PN ---
RN requested I see patient. Referral for consult was not received. Pt has been newly dx w/DM2 and ready to go home very soon. DX: DM A1C: 7.3 Assessment: Pt and daughters were very receptive to teaching. had already received a glucometer and education in it's use by RN. Intervention: Provided basic DM diet education: consistent carb diet, nutrients in foods and effect on bg. Plan: per MD note a referral for outpatient DM ed is being sent. encouraged pt/family to f/u to be sure this goes through.
--- NOTE | 2018-10-07 15:22 | PC.NURSE ---
Discharge Pt denied pain. SaO2 on RA was low 90's, ambulating sats were about the same. D/c Rx were called into [facility] and scripts were shredded. Glucometer was picked up by daughter. Pt and I went over how to use glucometer, when to test (fasting and after dinner), and pt was able to demonstrate twice how to go through the process and check his own blood sugar. D/c instructions provided to pt re: PNA, Metformin, Levofloxacin, and DM. daughters present for all d/c instructions as well. Pt aware to contact PCP for f/u and that apt has been made for 10/19. pt took all belongings with him.
== END 2018-10-07 14:50 | disposition home or self-care (01) | DRG 871 ==
LOC: ED 10-05 01:56 → AC 10-05 02:43
PROVIDERS: Family Medicine; Admitting Provider Nurse Practitioner Adult Health; Emergency Provider Emergency Medicine; PCP Family Medicine; Visit Provider Nurse Practitioner Adult Health
DX: A41.9 Sepsis, unspecified organism (principal); J18.9 Pneumonia, unspecified organism; E11.40 Type 2 diabetes mellitus with diabetic neuropathy, unspecified; N40.0 Benign prostatic hyperplasia without lower urinary tract symptoms; E78.5 Hyperlipidemia, unspecified; I25.10 Atherosclerotic heart disease of native coronary artery without angina pectoris; Z87.891 Personal history of nicotine dependence; E86.0 Dehydration; Z91.81 History of falling; G47.33 Obstructive sleep apnea (adult) (pediatric); I44.0 Atrioventricular block, first degree; D69.59 Other secondary thrombocytopenia
CPT/HCPCS: 36415; 36591; 71045; 76700; 80048; 80053; 80320; 81001; 81003; 81015; 82962; 83036; 83605; 83690; 83880; 84145; 84484; 85025; 85651; 87400; 87633; 93005; 93010; 93306; 94760; 96361; 96365; 97116; 97162; 97530; 99283; 99285; G0378; J1650; J1956; J2405

== ENCOUNTER 2018-10-11 22:57 | Emergency (ER) | payer OTHER, SELFPAY ==
[2018-10-05 03:37] VITALS: BMI 28.1
--- NOTE | 2018-10-11 22:59 | ED_ITS ---
HPI - General Adult General Chief complaint: Recheck/Abnormal Lab/Rx Stated complaint: Low BP Time Seen by Provider: 10/11/18 22:59 Source: patient Mode of arrival: ambulatory Limitations: no limitations History of Present Illness HPI narrative: 83-year-old male who on Sunday of this week was discharged from the hospital after being admitted for pneumonia. Stated he has finished his antibiotics yesterday. He stated that since he was discharged she has been feeling better however was still weak. Has not had much to eat or drink because he states that nothing tastes good to him. His daughter is at bedside. They been taking his blood pressure on a daily basis. They stated that earlier today they took his blood pressure and it was in the 130s to 150s systolic. They took it again this evening and it was 107. Patient's daughter states that they thought that he was not acting quite like himself at the time. They called the nurse advice line who told them to come into the emergency department for eval uation. Related Data Home Medications Medication Instructions Recorded Confirmed Fish Oil (#FISH OIL) 1 iu PO QDAY #0 06/03/12 10/05/18 PreserVision AREDS-2 1 ea PO DIRECTED #0 06/06/17 10/07/18 aspirin 81 mg tablet,delayed 81 mg PO DAILY 12/21/17 10/05/18 release Previous Rx's Medication Instructions Recorded metoprolol succinate [Toprol XL] 25 mg PO QDAY #90 ter 04/22/18 benzonatate 100 mg capsule 100 mg PO TID PRN #30 cap 07/19/18 tamsulosin 0.4 mg capsule 0.8 mg PO DAILY #180 cap 08/13/18 lovastatin 20 mg tablet 20 mg PO DAILY #90 tab 08/30/18 metformin [Glucophage] 250 mg PO BID #60 tab 10/07/18 miscellaneous medical supply #1 each 10/07/18 Allergies Allergy/AdvReac Type Severity Reaction Status Date / Time No Known Drug Allergies Allergy Verified 10/11/18 23:26 Review of Systems Constitutional Reports fatigue, Denies headache(s) and Reports weakness ENT Ears, Nose, Mouth, and Throat: Denies dizziness and Denies headache(s) Cardiovascular Denies chest pain and Denies dyspnea Respiratory Denies dyspnea Gastrointestinal Gastrointestinal: Denies abdominal pain Genitourinary Denies dysuria Musculoskeletal Denies myalgias Integumentary/Breasts Denies rash Neurologic Denies dizziness, Denies headache(s) and Reports weakness Endocrine Reports fatigue Hematologic/Lymphatic Denies easy bleeding and Denies easy bruising [facility] Medical History History of inferior wall myocardial infarction (Acute) Macular degeneration of left eye (Acute) Type 2 diabetes, uncontrolled, with neuropathy (Acute) BPH (benign prostatic hyperplasia) (Chronic Unknown) Diverticular disease (Chronic Unknown) Hearing loss (Chronic Unknown) Hyperlipemia (Chronic Unknown) Sleep apnea (Chronic Unknown) Skin cancer (Resolved Unknown) Squamous cell carcinoma (Resolved 01/2016) Family History Father No problems noted. Mother No problems noted. Social History household members: none Smoking Status: Former smoker Tobacco: How many years used: 20 alcohol intake: former Exam Initial Vital Signs Initial Vital Signs: Vital Signs Temperature 98.4 F 10/11/18 23:27 Pulse Rate 76 10/11/18 23:27 Respiratory Rate 21 10/11/18 23:27 Blood Pressure 141/63 H 10/11/18 23:27 Pulse Oximetry 95 10/11/18 23:27 Const General: cooperative, well developed, well groomed and No acute distress Orientation: alert, awake and oriented x3 Resp Effort & Inspection: normal respiratory effort Auscultation: clear to auscultation bilaterally Cardio Rate: regular rate Rhythm: regular rhythm GI Inspection: non-distended Palpation: soft, No firm and No tender Skin Lesions: no lesions Rashes: no rashes Neuro General: alert, awake and oriented x3 Cognition: normal cognition Speech: speech normal Gait: normal gait Motor: muscle tone normal throughout Sensory Exam: no sensory deficits noted Extrem General: normal to inspection and capillary refill normal Course Vital Signs - 8 hr 10/11/18 23:27 10/12/18 00:41 Temperature 98.4 F Pulse Rate 76 78 Respiratory Rate 21 28 H Blood Pressure 141/63 H Blood Pressure [Right Arm] 128/55 L Pulse Oximetry 95 95 Medical Decision Making MDM Narrative Medical decision making narrative: Patient's blood pressure was normal here in the emergency department. He ambulated around the department without any problems. He tolerated oral intake. Patient states that he feels better. He was observed here in the emergency department for some time and his blood pre ssure remained normal. I did not repeat any of his labs or any chest x-ray. Patient was asking to go home. We discussed return precautions and follow-up instructions. He expressed understanding and agreement plan. His daughter was at bedside for these discussions and also expressed understanding and agreement. Discharge Plan Departure Patient Disposition: Home Clinical Impression: Acute hypotension Discharge Date/Time: 10/12/18 01:24 Interventions: ED Discharge Assessment Last Done: 10/12/18 01:21 Instructions: DI for Hypotension Activity Restrictions/Additional Instructions: Take all of your medications as directed. Keep all of your scheduled medical appointments. Return to the emergency department for any new or worsening symptoms Prescriptions: No Action aspirin [Adult Aspirin Regimen] 81 mg tablet,delayed release (DR/EC) 81 mg PO DAILY RF: 0 benzonatate [Tessalon Perles] 100 mg capsule 100 mg PO TID PRN (Reason: cough) Qty: 30 RF: 0 Fish Oil (#FISH OIL) 1 iu PO QDAY Qty: 0 RF: 0 PreserVision AREDS-2 1 EACH capsule 1 ea PO DIRECTED Qty: 0 RF: 0 metoprolol succinate [Toprol XL] 25 mg tablet extended release 24 hr 25 mg PO QDAY Qty: 90 RF: 1 tamsulosin [Flomax] 0.4 mg capsule 0.8 mg PO DAILY Qty: 180 RF: 0 lovastatin 20 mg tablet 20 mg PO DAILY Qty: 90 RF: 1 metformin [Glucophage] 500 mg tablet 250 mg PO BID Qty: 60 RF: 0 miscellaneous medical supply kit .ROUTE .MEDSUPPLY Qty: 1 RF: 0 Referrals: Linda Toure DO [Primary Care Provider] -
[2018-10-11 23:27] VITALS: BP 141/63; PULSE 76; RESP 21; TEMP 36.9; O2SAT 95; BMI 28.8
[2018-10-12 00:41] VITALS: BP 128/55; PULSE 78; RESP 28; O2SAT 95
== END 2018-10-12 01:24 | disposition home or self-care (01) ==
PROVIDERS: Emergency Provider Emergency Medicine; PCP Family Medicine
DX: I95.0 Idiopathic hypotension (principal)
CPT/HCPCS: 99282

== ENCOUNTER → 2018-10-14 13:22 | Outpatient (CLI) | payer OTHER, SELFPAY ==
[2018-10-05 03:37] VITALS: BMI 28.1
--- NOTE | 2018-10-14 13:24 | DI.RAD.S_ITS ---
PROCEDURE: XR CHEST 2V INDICATIONS: lung infiltrate TECHNIQUE: 2 views of the chest were acquired. COMPARISON: [facility], CR, XR CHEST 1V, 10/07/2018, 3:01. [facility], CR, XR CHEST 1V, 10/04/2018, 20:26. FINDINGS: Surgical changes and devices: None. Lungs and pleura: Lungs are clear. No pleural effusions or pneumothorax. Mediastinum: Mediastinal contours are normal. Heart size is normal. Bones and chest wall: No suspicious bony abnormalities. Soft tissues appear unremarkable. IMPRESSION: Normal for age, source of current pneumonia symptoms is not seen. Dictated by: Aris Cruz M.D. on 10/14/2018 at 14:05 Approved by: Aris Cruz M.D. on 10/14/2018 at 14:05
== END ==
PROVIDERS: PCP Family Medicine; Visit Provider Family Medicine
DX: R91.8 Other nonspecific abnormal finding of lung field (principal)
CPT/HCPCS: 71046

== ENCOUNTER → 2018-10-17 07:27 | Outpatient (CLI) | payer OTHER, SELFPAY ==
[2018-10-05 03:37] VITALS: BMI 28.1
[2018-10-17 08:49] LABS: Alanine Aminotransferase 56 IU/L (21-72); Albumin Globulin Ratio 1.3 (1.0-2.8); Alkaline Phosphatase 213 U/L (38-126); Aspartate Aminotransferase 34 IU/L (17-59); BUN Creatinine Ratio 18.2 (6-22); Bilirubin Total 0.6 mg/dL (0.2-1.3); Blood Urea Nitrogen 20 mg/dL (9-20); Carbon Dioxide 27 mmol/L (22-32); Chloride 100 mmol/L (98-107); Cholesterol 168 mg/dL (140-199); Estimated Glomerular Filt Rate > 60.0 mL/min (>60); Globulin 3.1 g/dL (1.7-4.1); Glucose 119 mg/dL (80-110); HDL Cholesterol 25 mg/dL (40-60); HEMOLYSIS < 15 (0-50); LDL Cholesterol Calculated 93 mg/dL (<100); Potassium 4.1 mmol/L (3.4-5.1); Sodium 137 mmol/L (137-145); Total Protein 7.1 g/dL (6.3-8.2); Triglycerides 249 mg/dL (35-150)
[2018-10-17 09:18] LABS: Prostate Specific Antigen Scrn 7.18 ng/mL (0.1-4.0)
== END ==
PROVIDERS: PCP Internal Medicine; Visit Provider Internal Medicine
DX: E78.49 Other hyperlipidemia (principal); I10 Essential (primary) hypertension; Z12.5 Encounter for screening for malignant neoplasm of prostate
CPT/HCPCS: 36415; 80053; 80061; G0103

== ENCOUNTER 2018-11-14 18:41 | Emergency (ER) | payer OTHER, SELFPAY ==
[2018-10-05 03:37] VITALS: BMI 28.1
[2018-11-14 18:49] VITALS: BP 128/60; PULSE 93; RESP 18; TEMP 38.7; O2SAT 96; BMI 24.3
[2018-11-14 19:36] VITALS: BP 127/57; PULSE 83; RESP 16; TEMP 37.4; O2SAT 97
--- NOTE | 2018-11-14 19:47 | DI.RAD.S_ITS ---
PROCEDURE: XR CHEST 2V INDICATIONS: Weakness, fever, decreased lower lung sounds TECHNIQUE: 2 views of the chest were acquired. COMPARISON: [facility], CR, XR CHEST 2V, 10/14/2018, 13:26. FINDINGS: Surgical changes and devices: None. Lungs and pleura: Persistent right linear opacity likely atelectasis or scarring. Mediastinum: Mediastinal contours are normal. Heart size is normal. Bones and chest wall: No suspicious bony abnormalities. Soft tissues appear unremarkable. IMPRESSION: No acute pulmonary process. Dictated by: Angelica Jett M.D. on 11/14/2018 at 20:06 Approved by: Angelica Jett M.D. on 11/14/2018 at 20:07
--- NOTE | 2018-11-14 19:50 | ED.FEVER ---
HPI - Fever <JACINTO Hidalgo - Last Filed: 11/14/18 22:25> General Chief Complaint: Fever Stated Complaint: Weakness,fever, elevated pulse Time Seen by Provider: 11/14/18 19:24 Source: patient Mode of arrival: ambulatory Limitations: no limitations History of Present Illness HPI Narrative: This is an 83-year-old male with a history of diabetes and high blood pressure, presents to the emergency department after feeling weak with decreased appetite around lunchtime today. States that he checked his pulse and temperature and they were elevated, his blood sugar was around 112 today. He says he felt like this last time he had pneumonia about a month ago. Denies headaches, dizziness, chest pain, shortness of breath, abdominal pain, nausea, vomiting, change in bowel movement, dysuria, or confusion. MD complaint: fever Onset (ago): hour(s) Temperature Source: subjective Related Data Home Medications Medication Instructions Recorded Confirmed Fish Oil (#FISH OIL) 1 iu PO QDAY #0 06/03/12 10/05/18 PreserVision AREDS-2 1 ea PO DIRECTED #0 06/06/17 10/07/18 aspirin 81 mg tablet,delayed 81 mg PO DAILY 12/21/17 10/05/18 release Previous Rx's Medication Instructions Recorded metoprolol succinate [Toprol XL] 25 mg PO QDAY #90 ter 04/22/18 benzonatate 100 mg capsule 100 mg PO TID PRN #30 cap 07/19/18 tamsulosin 0.4 mg capsule 0.8 mg PO DAILY #180 cap 08/13/18 lovastatin 20 mg tablet 20 mg PO DAILY #90 tab 08/30/18 metformin [Glucophage] 250 mg PO BID #60 tab 10/07/18 miscellaneous medical supply #1 each 10/07/18 Allergies Allergy/AdvReac Type Severity Reaction Status Date / Time No Known Drug Allergies Allergy Verified 11/14/18 18:49 Review of Systems <JACINTO Hidalgo - Last Filed: 11/14/18 22:25> Review of Systems REVIEW OF SYSTEMS: GENERAL: Complains of fever, chills and weakness. Denies wt. loss. HENT: No head trauma, hearing loss, rhinorrhea, epistaxis, sinus pressure, sore throat, or dysphagia. EYES: No loss of vision, double vision, eye pain, or irritation. CARDIOVASCULAR: No chest pain, palpitations, edema, syncope, or orthopnea. RESPIRATORY: No shortness of breath, cough, or wheeze. GASTROINTESTINAL: See HPI, c/o of decrease appetite. GENITOURINARY: No flank pain, urinary incontinence, hesitancy, frequency, or dysuria. No dyspareunia. MUSCULOSKELETAL: No pain, weakness, or deformities. INTEGUMENTARY: No rash, lesions, or pruritus. NEURO: No numbness, tingling, memory loss, confusion, or headaches. PSYCH: No behavior or mood changes. ENDOCRINOLOGY: No hair loss of temperature intolerance. HEMATOLOGY: No easy bruising. LYMPHATIC: No lymphadenopathy. PFSH <JACINTO Hidalgo - Last Filed: 11/14/18 22:25> Medical History History of inferior wall myocardial infarction (Acute) Macular degeneration of left eye (Acute) Type 2 diabetes, uncontrolled, with neuropathy (Acute) BPH (benign prostatic hyperplasia) (Chronic Unknown) Diverticular disease (Chronic Unknown) Hearing loss (Chronic Unknown) Hyperlipemia (Chronic Unknown) Sleep apnea (Chronic Unknown) Skin cancer (Resolved Unknown) Squamous cell carcinoma (Resolved 01/2016) Surgical History History of bilateral cataract extraction (Acute) Family History Father No problems noted. Mother No problems noted. Social History household members: none Smoking Status: Former smoker Tobacco: How many years used: 20 alcohol intake: former Family History Father No problems noted. Mother No problems noted. Social History household members: none Smoking Status: Former smoker Tobacco: How many years used: 20 alcohol intake: former Exam <JACINTO Hidalgo - Last Filed: 11/14/18 22:25> Initial Vital Signs Initial Vital Signs: Vital Signs Temperature 101.6 F H 11/14/18 18:49 Pulse Rate 93 H 11/14/18 18:49 Respiratory Rate 18 11/14/18 18:49 Blood Pressure 128/60 11/14/18 18:49 Pulse Oximetry 96 11/14/18 18:49 PHYSICAL EXAMINATION: GENERAL: Well groomed, alert, and cooperative. Answers questions promptly and appropriately. Vital signs noted. HENT: Normocephalic, atraumatic. Ear canals patent, tympanic membranes normal without irritation or effusion, crisp light reflex present. Oral mucosa is pink and moist, no caries or lesions present. Pharynx without erythema. EYES: PERRLA, EOMIs, conjunctiva pink, sclera white, no periorbital swelling. NECK: Full range of motion, nontender. LYMPH: No lymphadenopathy. CHEST: Normal to inspection and without deformities. CARDIOVASCULAR: S1 and S2 sounds normal. Regular rate and rhythm, no murmurs, clicks, or bruits. No pedal edema. RESPIRATORY: Normal respiratory rate, trachea midline, airway patent. No stridor, nasal flaring or accessory muscle use. Lungs are clear in all price without wheeze, rhonchi, or crackles. GASTROINTESTINAL: Bowel sounds normoactive. Abdomen is soft and non-tender. No organomegaly. MUSCULOSKELETAL: Normal gait and coordination. Equal tone and mass bilaterally. No spinal tenderness or deformities. EXTREMITIES: CMS intact. Full range of motion and 5/5 strength to upper and lower extremities SKIN: Warm, dry, soft, appropriate color for ethnicity. No lesions, rashes, or wounds. NEURO: Alert and Oriented X 3. CN III-XII intact. Good coordination. No ataxia, or sensory deficits, or cognitive issues. PSYCH: Appropriate affect and mood. <Jim Reaves DO - Last Filed: 11/14/18 23:09> Initial Vital Signs Initial Vital Signs: Vital Signs Temperature 101.6 F H 11/14/18 18:49 Pulse Rate 93 H 11/14/18 18:49 Respiratory Rate 18 11/14/18 18:49 Blood Pressure 128/60 11/14/18 18:49 Pulse Oximetry 96 11/14/18 18:49 Scores <JACINTO Hidalgo - Last Filed: 11/14/18 22:25> CURB-65 Confusion: No BUN >19mg/dL (>7mmol/L): No Respiratory rate greater or equal to 30: No SBP <90mmHg or DBP less or equal to 60mmHg: No Age 65 or Older: Yes CURB-65 Total: 1 Score 0-1 Outpatient care, Score 2 Inpt vs. Obs, Score 3 or over Inpt admit with ICU for score of 4-5 Course <Dalila JACINTO Lynn - Last Filed: 11/14/18 22:25> Course Narrative: Patient's weakness improved after fluid administration and after he was given food. Spoke with patient about labs that were not indicated of infection, and x-ray results. Patient states he is feeling better and would like to go home. Orders Ordered: ED Orders 11/14/18 19:47 XR chest 2V Stat 11/14/18 20:10 Complete Blood Count AUTO DIFF Stat Comprehensive Metabolic Panel Stat Lactate (Lactic Acid) Stat Partial Thromboplastin Time Stat Procalcitonin Stat Prothrombin Time INR Stat Troponin & CK Cardiac Panel Stat 11/14/18 20:19 EKG-12 Lead Stat 11/14/18 20:36 Blood Culture Stat 11/14/18 20:51 Influenza A and B by PCR Rapid Stat 11/14/18 21:10 Urine Microscopic Stat Discontinued Medications Sodium Chloride (Normal Saline 0.9%) 1,000 mls @ 500 mls/hr IV BOLUS ONE Stop: 11/14/18 21:46 Last Infusion: 11/14/18 22:00 Dose: 0 mls/hr Admin: 11/14/18 20:21 Dose: 500 mls/hr Reevaluation(s) Reevaluation #1: Re-evaluated his stated above, patient improved after fluid and P Consultations Consultation #1: Staffed with who agrees with plan of care. Vital Signs - 8 hr 11/14/18 18:49 11/14/18 19:36 11/14/18 21:45 Temperature 101.6 F H 99.3 F Pulse Rate 93 H 83 68 Respiratory Rate 18 16 Blood Pressure 128/60 Blood Pressure [Left Arm] 127/57 L 112/41 L Pulse Oximetry 96 97 96 11/14/18 22:10 Temperature 99.1 F Pulse Rate 80 Respiratory Rate 18 Blood Pressure 116/52 L Blood Pressure [Left Arm] Pulse Oximetry 97 <Jim Reaves DO - Last Filed: 11/14/18 23:09> Orders Ordered: ED Orders 11/14/18 19:47 XR chest 2V Stat 11/14/18 20:10 Complete Blood Count AUTO DIFF Stat Comprehensive Metabolic Panel Stat Lactate (Lactic Acid) Stat Partial Thromboplastin Time Stat Procalcitonin Stat Prothrombin Time INR Stat Troponin & CK Cardiac Panel Stat 11/14/18 20:19 EKG-12 Lead Stat 11/14/18 20:36 Blood Culture Stat 11/14/18 20:51 Influenza A and B by PCR Rapid Stat 11/14/18 21:10 Urine Microscopic Stat Discontinued Medications Sodium Chloride (Normal Saline 0.9%) 1,000 mls @ 500 mls/hr IV BOLUS ONE Stop: 11/14/18 21:46 Last Infusion: 11/14/18 22:00 Dose: 0 mls/hr Admin: 11/14/18 20:21 Dose: 500 mls/hr Vital Signs - 8 hr 11/14/18 18:49 11/14/18 19:36 11/14/18 21:45 Temperature 101.6 F H 99.3 F Pulse Rate 93 H 83 68 Respiratory Rate 18 16 Blood Pressure 128/60 Blood Pressure [Left Arm] 127/57 L 112/41 L Pulse Oximetry 96 97 96 11/14/18 22:10 Temperature 99.1 F Pulse Rate 80 Respiratory Rate 18 Blood Pressure 116/52 L Blood Pressure [Left Arm] Pulse Oximetry 97 MDM - Fever <JACINTO Hidalgo - Last Filed: 11/14/18 22:25> Medical Records Attestation: I reviewed the patient's medical records. Lab Data Attestation: I reviewed the patient's lab results. Result diagrams: 11/14/18 20:10 11/14/18 20:10 Lab Results 11/14/18 11/14/18 11/14/18 Range/Units 20:10 20:10 20:10 WBC 7.8 (4.5-11.0) X10^3/uL RBC 4.11 L (4.5-5.9) X10^6/uL Hgb 12.4 L (13.5-17.5) g/dL Hct 36.9 L (41-53) % MCV 89.9 (80-100) fL MCH 30.3 (26-34) PG MCHC 33.7 (30-36) % RDW 15.0 H (11.6-14.8) % Plt Count 136 L (150-400) X10^3/uL Neut % (Auto) 93.5 H (50-75) % Lymph % (Auto) 1.8 L (25-40) % [place] % (Auto) 4.0 (3-14) % Eos % (Auto) 0.6 L (2-4) % Baso % (Auto) 0.1 (0-2) % Neut # (Auto) 7300 H (7590-7121) /uL Lymph # (Auto) 100 L (5209-8403) /uL [place] # (Auto) 300 (0-900) /uL Eos # (Auto) 0 (0-450) /uL Baso # (Auto) 0 (0-100) /uL PT 12.5 (10.1-12.7) SECONDS INR 1.1 (0.9-1.3) APTT 35 (26.4-36.2) SECONDS Sodium (137-145) mmol/L Potassium (3.4-5.1) mmol/L Chloride (98-107) mmol/L Carbon Dioxide (22-32) mmol/L BUN (9-20) mg/dL Creatinine (0.66-1.25) mg/dL Estimated GFR (>60) mL/min BUN/Creatinine Ratio (6-22) Glucose (80-110) mg/dL Lactate (0.7-2.1) mmol/L Calcium (8.4-10.2) mg/dL Total Bilirubin (0.2-1.3) mg/dL AST (17-59) IU/L ALT (21-72) IU/L Alkaline Phosphatase (38-126) U/L Total Creatine Kinase (55-170) U/L CK-MB (CK-2) CK-MB (CK-2) Rel Index Troponin I (0.01-0.034) ng/mL Total Protein (6.3-8.2) g/dL Albumin (3.5-5.0) g/dL Globulin (1.7-4.1) g/dL Albumin/Globulin Ratio (1.0-2.8) Procalcitonin 2.66 H (<0.5) ng/mL Urine RBC (0-5/HPF) Urine WBC (0-5/HPF) Ur Squamous Epith Cells (0-5/HPF) Urine Bacteria (None) Hyaline Casts (None) Ur Culture Indicated? Influenza A & B (PCR) (Negative) 11/14/18 11/14/18 11/14/18 Range/Units 20:10 20:10 20:10 WBC (4.5-11.0) X10^3/uL RBC (4.5-5.9) X10^6/uL Hgb (13.5-17.5) g/dL Hct (41-53) % MCV (80-100) fL MCH (26-34) PG MCHC (30-36) % RDW (11.6-14.8) % Plt Count (150-400) X10^3/uL Neut % (Auto) (50-75) % Lymph % (Auto) (25-40) % [place] % (Auto) (3-14) % Eos % (Auto) (2-4) % Baso % (Auto) (0-2) % Neut # (Auto) (6919-7261) /uL Lymph # (Auto) (1822-8729) /uL [place] # (Auto) (0-900) /uL Eos # (Auto) (0-450) /uL Baso # (Auto) (0-100) /uL PT (10.1-12.7) SECONDS INR (0.9-1.3) APTT (26.4-36.2) SECONDS Sodium 135 L (137-145) mmol/L Potassium 4.1 (3.4-5.1) mmol/L Chloride 100 (98-107) mmol/L Carbon Dioxide 25 (22-32) mmol/L BUN 19 (9-20) mg/dL Creatinine 1.00 (0.66-1.25) mg/dL Estimated GFR > 60.0 (>60) mL/min BUN/Creatinine Ratio 19.0 (6-22) Glucose 123 H (80-110) mg/dL Lactate 1.1 (0.7-2.1) mmol/L Calcium 8.9 (8.4-10.2) mg/dL Total Bilirubin 0.8 (0.2-1.3) mg/dL AST 21 (17-59) IU/L ALT 17 L (21-72) IU/L Alkaline Phosphatase 61 (38-126) U/L Total Creatine Kinase 78 (55-170) U/L CK-MB (CK-2) TNP CK-MB (CK-2) Rel Index TNP Troponin I < 0.012 (0.01-0.034) ng/mL Total Protein 6.7 (6.3-8.2) g/dL Albumin 4.0 (3.5-5.0) g/dL Globulin 2.7 (1.7-4.1) g/dL Albumin/Globulin Ratio 1.5 (1.0-2.8) Procalcitonin (<0.5) ng/mL Urine RBC (0-5/HPF) Urine WBC (0-5/HPF) Ur Squamous Epith Cells (0-5/HPF) Urine Bacteria (None) Hyaline Casts (None) Ur Culture Indicated? Influenza A & B (PCR) (Negative) 11/14/18 11/14/18 Range/Units 20:51 21:10 WBC (4.5-11.0) X10^3/uL RBC (4.5-5.9) X10^6/uL Hgb (13.5-17.5) g/dL Hct (41-53) % MCV (80-100) fL MCH (26-34) PG MCHC (30-36) % RDW (11.6-14.8) % Plt Count (150-400) X10^3/uL Neut % (Auto) (50-75) % Lymph % (Auto) (25-40) % [place] % (Auto) (3-14) % Eos % (Auto) (2-4) % Baso % (Auto) (0-2) % Neut # (Auto) (8782-5789) /uL Lymph # (Auto) (2492-7451) /uL [place] # (Auto) (0-900) /uL Eos # (Auto) (0-450) /uL Baso # (Auto) (0-100) /uL PT (10.1-12.7) SECONDS INR (0.9-1.3) APTT (26.4-36.2) SECONDS Sodium (137-145) mmol/L Potassium (3.4-5.1) mmol/L Chloride (98-107) mmol/L Carbon Dioxide (22-32) mmol/L BUN (9-20) mg/dL Creatinine (0.66-1.25) mg/dL Estimated GFR (>60) mL/min BUN/Creatinine Ratio (6-22) Glucose (80-110) mg/dL Lactate (0.7-2.1) mmol/L Calcium (8.4-10.2) mg/dL Total Bilirubin (0.2-1.3) mg/dL AST (17-59) IU/L ALT (21-72) IU/L Alkaline Phosphatase (38-126) U/L Total Creatine Kinase (55-170) U/L CK-MB (CK-2) CK-MB (CK-2) Rel Index Troponin I (0.01-0.034) ng/mL Total Protein (6.3-8.2) g/dL Albumin (3.5-5.0) g/dL Globulin (1.7-4.1) g/dL Albumin/Globulin Ratio (1.0-2.8) Procalcitonin (<0.5) ng/mL Urine RBC 0-1/hpf (0-5/HPF) Urine WBC 0-1/hpf (0-5/HPF) Ur Squamous Epith Cells 0-1 /hpf (0-5/HPF) Urine Bacteria None seen (None) Hyaline Casts 0-1/lpf (None) Ur Culture Indicated? Cult not indicated Influenza A & B (PCR) Negative (Negative) Urine Dip Bedside Urine Glucose Negative Bedside Urine Bilirubin + 1 Bedside Urine Ketone +++ 80 Urine Specific [place] 1.015 Bedside Urine Occult Blood - Negative Bedside Urine pH 7.5 Bedside Urine Protein +/- 15 Bedside Urine Urobilinogen 1+ 2mg Bedside Urine Nitrite - Negative Bedside Urine Leukocytes +/- 15 Esterase Imaging Data Chest x-ray: Radiologist's impression: [address] [address] XRay Report Signed Patient: Jim Mccormick MMR#: [id number] : [id number]:[id number] Age/Sex: 83 / MDate of Service: 11/14/18 Loc: ED Accession Number: [id number] Procedure: XR chest 2V Ordering Provider: Dalila Lynn PROCEDURE: XR CHEST 2V INDICATIONS: Weakness, fever, decreased lower lung sounds TECHNIQUE: 2 views of the chest were acquired. COMPARISON: [facility], CR, XR CHEST 2V, 10/14/2018, 13:26. FINDINGS: Surgical changes and devices: None. Lungs and pleura: Persistent right linear opacity likely atelectasis or scarring. Mediastinum: Mediastinal contours are normal. Heart size is normal. Bones and chest wall: No suspicious bony abnormalities. Soft tissues appear unremarkable. IMPRESSION: No acute pulmonary process. Dictated by: Angelica Jett M.D. on 11/14/2018 at 20:06 Approved by: Angelica Jett M.D. on 11/14/2018 at 20:07 ECG Data Attestation: I personally reviewed and interpreted this ECG as follows: Interpretation: Rate 74, AL interval 273, QTC 416. Sinus rhythm regular rate. No ST elevation or depression, no T-wave inversion. Dr. Reaves also read EKG. MDM Narrative Medical decision making narrative: Unsure of etiology of patient's symptoms. Suspect possible viral illness (possibly GI due to nausea) or dehydration, due to lack of indication for bacterial infection with a normal white blood cell count, normal urine sample, normal chest x-ray. Patient improved after fluids and food. Discussed with patient strict return precautions especially since patient was on past. Patient was instructed to return if increasing symptoms as listed in the discharge instructions. He was also instructed to follow up with his primary care provider early next week. <Jim Reaves, DO - Last Filed: 11/14/18 23:09> Lab Data Lab Results 11/14/18 11/14/18 11/14/18 Range/Units 20:10 20:10 20:10 WBC 7.8 (4.5-11.0) X10^3/uL RBC 4.11 L (4.5-5.9) X10^6/uL Hgb 12.4 L (13.5-17.5) g/dL Hct 36.9 L (41-53) % MCV 89.9 (80-100) fL MCH 30.3 (26-34) PG MCHC 33.7 (30-36) % RDW 15.0 H (11.6-14.8) % Plt Count 136 L (150-400) X10^3/uL Neut % (Auto) 93.5 H (50-75) % Lymph % (Auto) 1.8 L (25-40) % [place] % (Auto) 4.0 (3-14) % Eos % (Auto) 0.6 L (2-4) % Baso % (Auto) 0.1 (0-2) % Neut # (Auto) 7300 H (8695-3204) /uL Lymph # (Auto) 100 L (3088-5314) /uL [place] # (Auto) 300 (0-900) /uL Eos # (Auto) 0 (0-450) /uL Baso # (Auto) 0 (0-100) /uL PT 12.5 (10.1-12.7) SECONDS INR 1.1 (0.9-1.3) APTT 35 (26.4-36.2) SECONDS Sodium (137-145) mmol/L Potassium (3.4-5.1) mmol/L Chloride (98-107) mmol/L Carbon Dioxide (22-32) mmol/L BUN (9-20) mg/dL Creatinine (0.66-1.25) mg/dL Estimated GFR (>60) mL/min BUN/Creatinine Ratio (6-22) Glucose (80-110) mg/dL Lactate (0.7-2.1) mmol/L Calcium (8.4-10.2) mg/dL Total Bilirubin (0.2-1.3) mg/dL AST (17-59) IU/L ALT (21-72) IU/L Alkaline Phosphatase (38-126) U/L Total Creatine Kinase (55-170) U/L CK-MB (CK-2) CK-MB (CK-2) Rel Index Troponin I (0.01-0.034) ng/mL Total Protein (6.3-8.2) g/dL Albumin (3.5-5.0) g/dL Globulin (1.7-4.1) g/dL Albumin/Globulin Ratio (1.0-2.8) Procalcitonin 2.66 H (<0.5) ng/mL Urine RBC (0-5/HPF) Urine WBC (0-5/HPF) Ur Squamous Epith Cells (0-5/HPF) Urine Bacteria (None) Hyaline Casts (None) Ur Culture Indicated? Influenza A & B (PCR) (Negative) 05/30/19 05/30/19 05/30/19 Range/Units 20:10 20:10 20:10 WBC (4.5-11.0) X10^3/uL RBC (4.5-5.9) X10^6/uL Hgb (13.5-17.5) g/dL Hct (41-53) % MCV (80-100) fL MCH (26-34) PG MCHC (30-36) % RDW (11.6-14.8) % Plt Count (150-400) X10^3/uL Neut % (Auto) (50-75) % Lymph % (Auto) (25-40) % [place] % (Auto) (3-14) % Eos % (Auto) (2-4) % Baso % (Auto) (0-2) % Neut # (Auto) (2941-5717) /uL Lymph # (Auto) (6062-0121) /uL [place] # (Auto) (0-900) /uL Eos # (Auto) (0-450) /uL Baso # (Auto) (0-100) /uL PT (10.1-12.7) SECONDS INR (0.9-1.3) APTT (26.4-36.2) SECONDS Sodium 135 L (137-145) mmol/L Potassium 4.1 (3.4-5.1) mmol/L Chloride 100 (98-107) mmol/L Carbon Dioxide 25 (22-32) mmol/L BUN 19 (9-20) mg/dL Creatinine 1.00 (0.66-1.25) mg/dL Estimated GFR > 60.0 (>60) mL/min BUN/Creatinine Ratio 19.0 (6-22) Glucose 123 H (80-110) mg/dL Lactate 1.1 (0.7-2.1) mmol/L Calcium 8.9 (8.4-10.2) mg/dL Total Bilirubin 0.8 (0.2-1.3) mg/dL AST 21 (17-59) IU/L ALT 17 L (21-72) IU/L Alkaline Phosphatase 61 (38-126) U/L Total Creatine Kinase 78 (55-170) U/L CK-MB (CK-2) TNP CK-MB (CK-2) Rel Index TNP Troponin I < 0.012 (0.01-0.034) ng/mL Total Protein 6.7 (6.3-8.2) g/dL Albumin 4.0 (3.5-5.0) g/dL Globulin 2.7 (1.7-4.1) g/dL Albumin/Globulin Ratio 1.5 (1.0-2.8) Procalcitonin (<0.5) ng/mL Urine RBC (0-5/HPF) Urine WBC (0-5/HPF) Ur Squamous Epith Cells (0-5/HPF) Urine Bacteria (None) Hyaline Casts (None) Ur Culture Indicated? Influenza A & B (PCR) (Negative) 11/14/18 11/14/18 Range/Units 20:51 21:10 WBC (4.5-11.0) X10^3/uL RBC (4.5-5.9) X10^6/uL Hgb (13.5-17.5) g/dL Hct (41-53) % MCV (80-100) fL MCH (26-34) PG MCHC (30-36) % RDW (11.6-14.8) % Plt Count (150-400) X10^3/uL Neut % (Auto) (50-75) % Lymph % (Auto) (25-40) % [place] % (Auto) (3-14) % Eos % (Auto) (2-4) % Baso % (Auto) (0-2) % Neut # (Auto) (8644-0367) /uL Lymph # (Auto) (1745-2246) /uL [place] # (Auto) (0-900) /uL Eos # (Auto) (0-450) /uL Baso # (Auto) (0-100) /uL PT (10.1-12.7) SECONDS INR (0.9-1.3) APTT (26.4-36.2) SECONDS Sodium (137-145) mmol/L Potassium (3.4-5.1) mmol/L Chloride (98-107) mmol/L Carbon Dioxide (22-32) mmol/L BUN (9-20) mg/dL Creatinine (0.66-1.25) mg/dL Estimated GFR (>60) mL/min BUN/Creatinine Ratio (6-22) Glucose (80-110) mg/dL Lactate (0.7-2.1) mmol/L Calcium (8.4-10.2) mg/dL Total Bilirubin (0.2-1.3) mg/dL AST (17-59) IU/L ALT (21-72) IU/L Alkaline Phosphatase (38-126) U/L Total Creatine Kinase (55-170) U/L CK-MB (CK-2) CK-MB (CK-2) Rel Index Troponin I (0.01-0.034) ng/mL Total Protein (6.3-8.2) g/dL Albumin (3.5-5.0) g/dL Globulin (1.7-4.1) g/dL Albumin/Globulin Ratio (1.0-2.8) Procalcitonin (<0.5) ng/mL Urine RBC 0-1/hpf (0-5/HPF) Urine WBC 0-1/hpf (0-5/HPF) Ur Squamous Epith Cells 0-1 /hpf (0-5/HPF) Urine Bacteria None seen (None) Hyaline Casts 0-1/lpf (None) Ur Culture Indicated? Cult not indicated Influenza A & B (PCR) Negative (Negative) Urine Dip Bedside Urine Glucose Negative Bedside Urine Bilirubin + 1 Bedside Urine Ketone +++ 80 Urine Specific [place] 1.015 Bedside Urine Occult Blood - Negative Bedside Urine pH 7.5 Bedside Urine Protein +/- 15 Bedside Urine Urobilinogen 1+ 2mg Bedside Urine Nitrite - Negative Bedside Urine Leukocytes +/- 15 Esterase Discharge Plan Departure Patient Disposition: Home Clinical Impression: Acute viral syndrome Fever Qualifiers: Fever type: unspecified Qualified Code(s): R50.9 - Fever, unspecified Discharge Date/Time: 11/14/18 22:10 Interventions: ED Discharge Assessment Last Done: 11/14/18 22:10 Instructions: DI for Fever (Symptom) -- Adult Activity Restrictions/Additional Instructions: Thank you for entrusting me with your care today. As discussed,. Chest x-ray was negative for acute findings, the labs did not indicate a source of infection. I think her symptoms may be caused by a virus. However after virus to her more susceptible to a bacterial infection. Please follow up with her primary care provider in a few days. Return to the emergency department if he develops chest pain, high fever that is not relieved with Tylenol, shortness of breath, profuse vomiting, blood in her stool, or confusion. Prescriptions: No Action aspirin [Adult Aspirin Regimen] 81 mg tablet,delayed release (DR/EC) 81 mg PO DAILY RF: 0 benzonatate [Tessalon Perles] 100 mg capsule 100 mg PO TID PRN (Reason: cough) Qty: 30 RF: 0 Fish Oil (#FISH OIL) 1 iu PO QDAY Qty: 0 RF: 0 PreserVision AREDS-2 1 EACH capsule 1 ea PO DIRECTED Qty: 0 RF: 0 metoprolol succinate [Toprol XL] 25 mg tablet extended release 24 hr 25 mg PO QDAY Qty: 90 RF: 1 tamsulosin [Flomax] 0.4 mg capsule 0.8 mg PO DAILY Qty: 180 RF: 0 lovastatin 20 mg tablet 20 mg PO DAILY Qty: 90 RF: 1 metformin [Glucophage] 500 mg tablet 250 mg PO BID Qty: 60 RF: 0 miscellaneous medical supply kit .ROUTE .MEDSUPPLY Qty: 1 RF: 0 Referrals: Beba Lawrence MD [Primary Care Provider] - <Jim Reaves DO - Last Filed: 11/14/18 23:09> Cosign ED Attending Nannetteature Attestation: I was available for consultation during this patient's emergency department encounter
[2018-11-14 20:21] LABS: Add Manual Diff / Slide Review NO; Basophils Absolute Auto 0 /uL (0-100); Basophils Percent Auto 0.1 % (0-2); Eosinophils Absolute Auto 0 /uL (0-450); Eosinophils Percent Auto 0.6 % (2-4); Hematocrit 36.9 % (41-53); Hemoglobin 12.4 g/dL (13.5-17.5); Lymphocytes Absolute Auto 100 /uL (1100-4500); Lymphocytes Percent Auto 1.8 % (25-40); Mean Corpuscular HGB Conc 33.7 % (30-36); Mean Corpuscular Hemoglobin 30.3 PG (26-34); Mean Corpuscular Volume 89.9 fL (80-100); Monocytes Absolute Auto 300 /uL (0-900); Neutrophils Absolute Auto 7300 /uL (1500-7000); Neutrophils Percent Auto 93.5 % (50-75); Platelet Count 136 X10^3/uL (150-400); Red Blood Cell Count 4.11 X10^6/uL (4.5-5.9); White Blood Cell Count 7.8 X10^3/uL (4.5-11.0)
[2018-11-14] MEDS: SODIUM CHLORIDE 0.9% 1,000 ML 500 ML IV (20:21)
[2018-11-14 20:34] LABS: INR 1.1 (0.9-1.3); Prothrombin Time 12.5 SECONDS (10.1-12.7)
[2018-11-14 20:36] LABS: PTT Partial Thromboplastin Tim 35 SECONDS (26.4-36.2)
[2018-11-14 20:40] LABS: Lactate (Lactic Acid) 1.1 mmol/L (0.7-2.1)
[2018-11-14 20:41] LABS: Alanine Aminotransferase 17 IU/L (21-72); Albumin Globulin Ratio 1.5 (1.0-2.8); Alkaline Phosphatase 61 U/L (38-126); Aspartate Aminotransferase 21 IU/L (17-59); Bilirubin Total 0.8 mg/dL (0.2-1.3); Blood Urea Nitrogen 19 mg/dL (9-20); Calcium 8.9 mg/dL (8.4-10.2); Carbon Dioxide 25 mmol/L (22-32); Chloride 100 mmol/L (98-107); Estimated Glomerular Filt Rate > 60.0 mL/min (>60); Globulin 2.7 g/dL (1.7-4.1); Glucose 123 mg/dL (80-110); HEMOLYSIS < 15 (0-50); Potassium 4.1 mmol/L (3.4-5.1); Sodium 135 mmol/L (137-145); Total Protein 6.7 g/dL (6.3-8.2)
[2018-11-14 20:57] LABS: Procalcitonin 2.66 ng/mL (<0.5)
[2018-11-14 21:02] LABS: Creatine Kinase 78 U/L (55-170)
[2018-11-14 21:14] LABS: Influenza A and B by PCR Rapid Negative (Negative)
[2018-11-14 21:15] LABS: Troponin I < 0.012 ng/mL (0.01-0.034)
[2018-11-14 21:24] LABS: Bacteria Urine None Seen
[2018-11-14 21:37] LABS: Culture Indicated Urine Cult Not Indicated; Hyaline Casts Urine 0-1/LPF; RBC Urine 0-1/HPF (0-5/HPF); Squamous Epithelial Cell Urine 0-1 /HPF (0-5/HPF); WBC Urine 0-1/HPF (0-5/HPF)
[2018-11-14 21:45] VITALS: BP 112/41; PULSE 68; O2SAT 96
[2018-11-14 22:10] VITALS: BP 116/52; PULSE 80; RESP 18; TEMP 37.3; O2SAT 97
== END 2018-11-14 22:10 | disposition home or self-care (01) ==
PROVIDERS: Emergency Provider Nurse Practitioner; PCP Internal Medicine
DX: B34.9 Viral infection, unspecified (principal); R50.9 Fever, unspecified; R53.1 Weakness; I25.2 Old myocardial infarction
CPT/HCPCS: 36415; 36591; 71046; 80053; 81003; 81015; 82550; 83605; 84145; 84484; 85025; 85610; 85730; 87040; 87400; 93005; 96360; 96361; 99283; 99285

== ENCOUNTER → 2018-11-27 13:58 | Outpatient (CLI) | payer OTHER, SELFPAY ==
[2018-10-05 03:37] VITALS: BMI 28.1
--- NOTE | 2018-11-27 15:38 | DIET.PN ---
DIABETES Nutrition Initial Assessment:? ASSESS:?? 83 yom referred for type 2 diabetes. Pt with recent diagnosis. States he was diagnosed around a month ago when he was in the hospital for pneumonia. Pt also complains of 30# unintentional weight loss which he contributes to being admitted to the hospital for over a week. Recently began monitoring BG and keeping track of dietary intake. States he has cut out most starches and has cut down on portions, but complains he is hungry all the time. Pt reports numbness in feet for the last 6 years. ? LABS: Per pt report:? A1c: 7.3 FB-150 1hr evening PP: 90-180 ? MEDS:?? metformin 1000mg BID ? DIET: Per 24-hour recall:? B: 2 eggs, sourdough bread, viyk cracker L: bowl homemade clam chowder D: small turkey sandwich, 1 cup apple sauce ? Weight: 173.5lb (190 UBW) ? Exercise:? cardio glide. Just started exercising again since hospital admission. Will work on increasing time and resistance. NUTRITION DX 1. Altered Nutrition related labs related to impaired glucose metabolism, lack of previous exposure to accurate nutrition information as evidenced by pt report, dx of diabetes, previous diet high in refined carbohydrates.? INTERVENTION(s): 1. Discussed pathophysiology of diabetes. Reviewed A1c and its correlation to blood glucose numbers. Discussed recommended BG ranges. 2. Discussed importance of self-monitoring, how often, and when to check. 3. Reviewed hyper/hypoglycemia and treatment. 4. Reviewed safe disposal of equipment (strip/lancets/insulin needles). 5. Discussed impact of nutrition/diet on blood sugar control.? Discussed fed versus non-fed state.?? 6. Discussed the effect of carbohydrates/protein/fat on blood sugar control.? Stressed importance of consistent carbohydrate intake at each meal and provided instructions for recommended servings/portions of carbohydrates/protein per meal. Provided pt with educational material. 7. Reviewed carbohydrate counting and measuring carbohydrate content via serving sizes and reading nutrition labels.? Provided handouts.?? 8. Discussed the difference between simple versus complex carbohydrates and the effect of fiber on blood sugar control.? Discussed various methods to increase fiber content in diet. 9. Stressed importance of meal timing and not going >4-5 hours between meals. Encouraged adding protein to each meal to support glucose control. Provided list of protein foods. Discussed best protein options for heart health and to alleviate hunger. Patient agreeable. 10. Discussed healthy weight loss through diet and exercise to increase lean muscle mass.? Pt agreeable to using glide daily, increasing time and resistance as tolerated. MONITOR/EVALUATE: Anticipate good compliance.? Nutrition follow up schedule for 1 mo to review BG, weight, food record.
== END ==
PROVIDERS: PCP Internal Medicine; Visit Provider Family Medicine
DX: E11.9 Type 2 diabetes mellitus without complications (principal)
CPT/HCPCS: 97802

== ENCOUNTER → 2019-01-08 13:47 | Outpatient (CLI) | payer OTHER, SELFPAY ==
[2018-10-05 03:37] VITALS: BMI 28.1
--- NOTE | 2019-01-08 14:47 | DIET.PN ---
Dietary Progress Note Assessment: 84 yom seen for diabetes follow up. Pt has monitoring BG 2 x/day including FBG and alternating 2 hr PP. He reports making a few changes to dietary habits since beginning monitoring BG including cutting out biscuits and gravy and more consistent carb intake. He has not been able to exercise as he had planned to do extreme muscle fatigue, however the tingling in his feet has had significant improvement. He has gained back a little of the weight he lost while in the hospital for pneumonia. Pt excited to review most recent labs. WT: 177 (01/08/19) 173.5 (11/27/18) Meds:Metformin 1000mg BID Labs: A1c: 5.8 (12/17/18) 7.3 (11/03) FB-134 (184 H) T HDL: 25 Nutrition Diagnosis: Altered nutrition related lab values r/t impaired glucose metabolism aeb pt report, dx of diabetes, previous diet high in refined carbs. Interventions: 1. Reviewed new labs and BG records. Pt excited for report and motivated to keep working to improved his health. 2. Discussed lipid levels. Discussed importance of a balanced diet and increasing physical activity. Monitoring/Evaluations: No nutrition F/u scheduled at this time. Pt prefers to weight until new labs.
== END ==
PROVIDERS: PCP Internal Medicine; Visit Provider Internal Medicine
DX: E11.9 Type 2 diabetes mellitus without complications (principal)
CPT/HCPCS: 97803

== ENCOUNTER → 2019-03-13 07:41 | Outpatient (CLI) | payer OTHER, SELFPAY ==
[2018-10-05 03:37] VITALS: BMI 28.1
[2019-03-13 09:47] LABS: Prostate Specific Antigen 5.09 ng/mL (0.10-4.00)
== END ==
PROVIDERS: PCP Internal Medicine; Visit Provider Urology
DX: R97.20 Elevated prostate specific antigen [PSA] (principal)
CPT/HCPCS: 36415; 84153

== ENCOUNTER 2019-05-15 14:16 | Emergency (ER) | payer OTHER, SELFPAY ==
[2018-10-05 03:37] VITALS: BMI 28.1
[2019-05-15 14:29] VITALS: BP 178/68; PULSE 71; RESP 20; TEMP 37; O2SAT 97
--- NOTE | 2019-05-15 14:40 | ED.NEUROSD ---
HPI - Neuro Symptoms/Deficit General Chief Complaint: Neuro Symptoms/Deficit Stated Complaint: Slurred speech,falling Time Seen by Provider: 05/15/19 14:24 Source: patient Mode of arrival: Wheelchair Limitations: no limitations History of Present Illness HPI Narrative: Patient is brought to the emergency department by his daughter after being found to have slurred speech and right-sided weakness. The patient states that the symptoms started 2 days ago. He took a fall at that time after losing his balance and was able to get himself up on his own. He noticed that his right side seemed weaker than usual and he had some left facial droop and slurred speech. The patient states that he otherwise was feeling well. He knew that the holiday was coming up and did not want to have to get medically evaluated before then. Patient's daughter states she came today and felt that the patient ?did not seem right?. She clarifies that this is mainly the way he was moving around and speaking. The patient denies any history of CVA previously. He is on a daily baby aspirin, and is also treated for diabetes, hypertension, and hyperlipidemia. He sees Dr. Beba Lawrence for his primary care. Patient denies any nausea or vomiting. No vertigo. No chest pain or shortness breath. No other complaints at this time. On Anticoagulants: No (81mg asa) Related Data Home Medications Medication Instructions Recorded Confirmed Fish Oil (#FISH OIL) 1 iu PO QDAY #0 06/03/12 10/05/18 PreserVision AREDS-2 1 ea PO DIRECTED #0 06/06/17 10/07/18 aspirin 81 mg tablet,delayed 81 mg PO DAILY 12/21/17 10/05/18 release Previous Rx's Medication Instructions Recorded metoprolol succinate [Toprol XL] 25 mg PO QDAY #90 ter 04/22/18 benzonatate 100 mg capsule 100 mg PO TID PRN #30 cap 07/19/18 tamsulosin 0.4 mg capsule 0.8 mg PO DAILY #180 cap 08/13/18 metformin [Glucophage] 250 mg PO BID #60 tab 10/07/18 miscellaneous medical supply #1 each 10/07/18 lovastatin 20 mg tablet See Rx Instructions .ROUTE 04/21/19 .COMPLEX #30 tab Allergies Allergy/AdvReac Type Severity Reaction Status Date / Time No Known Drug Allergies Allergy Verified 11/14/18 18:49 Review of Systems Constitutional Constitutional: Denies chills, Denies fatigue, Denies fever(s), Denies frequent falls, Denies lethargy and Reports weakness Eyes Eyes: Denies change in vision, Denies eye discharge, Denies irritation and Denies loss of vision ENT Ears, Nose, Mouth, and Throat: Denies change in voice, Denies dizziness, Denies neck pain, Denies sore throat and Denies throat swelling Cardiovascular Cardiovascular: Denies chest pain, Denies irregular heart rhythm, Denies lightheadedness, Denies palpitations, Denies dyspnea, Denies dyspnea on exertion and Denies orthopnea Respiratory Respiratory: Denies cough, Denies dyspnea, Denies dyspnea on exertion and Denies wheezing Gastrointestinal Gastrointestinal: Denies abdominal pain, Denies change in bowel habits, Denies diarrhea, Denies nausea and Denies vomiting Genitourinary Genitourinary: Denies hematuria, Denies flank pain, Denies urinary incontinence and Denies urinary urgency Musculoskeletal Musculoskeletal: Denies back pain, Denies muscle weakness, Denies neck pain, Denies numbness and Denies tingling Integumentary/Breasts Skin/Breast: Denies pruritus, Denies erythema, Denies rash and Denies wounds Neurologic Neurologic: Denies behavioral changes, Denies confusion, Denies dizziness, Denies frequent falls, Denies loss of vision, Denies numbness, Denies tingling and Reports weakness Psychiatric Psychiatric: Denies anxiety, Denies behavioral changes, Denies confusion, Denies depression, Denies homicidal ideation and Denies suicidal ideation Endocrine Endocrine: Denies fatigue, Denies flushing and Denies palpitations Hematologic/Lymphatic Hematologic/Lymphatic: Denies easy bruising Allergic/Immunologic Allergic/Immunologic: Denies urticaria, Denies throat swelling and Denies wheezing Patient History Medical History BPH (benign prostatic hyperplasia) (Chronic Unknown) Diverticular disease (Chronic Unknown) Hearing loss (Chronic Unknown) History of inferior wall myocardial infarction (Acute) Hyperlipemia (Chronic Unknown) Macular degeneration of left eye (Acute) Skin cancer (Resolved Unknown) Sleep apnea (Chronic Unknown) Squamous cell carcinoma (Resolved 01/2016) Type 2 diabetes, uncontrolled, with neuropathy (Acute) Surgical History History of bilateral cataract extraction (Acute) Family History Father No problems noted. Mother No problems noted. Social History household members: none Smoking Status: Former smoker Tobacco: How many years used: 20 alcohol intake: former Substance Use Type: does not use Exam Initial Vital Signs Initial Vital Signs: Vital Signs Temperature 98.6 F 05/15/19 14:29 Pulse Rate 71 05/15/19 14:29 Respiratory Rate 20 05/15/19 14:29 Blood Pressure 178/68 H 05/15/19 14:29 Pulse Oximetry 97 05/15/19 14:29 Const General: cooperative and well developed Nutritional Appearance: well nourished Orientation: alert, awake, oriented x3 and not confused [facility] Head: normocephalic and atraumatic Ears: external ears normal Nose: external nose normal and No nasal discharge Face and sinus: face symmetric and No dry mucous membranes Mouth: oral mucosae normal and moist mucous membranes Teeth and gingiva: dentition normal Eyes General: appearance normal, both eyes and all related structures Eyelids: eyelids normal Conjunctivae: conjunctivae normal Sclera: sclerae normal Pupils: PERRL EOM: EOM intact bilaterally Neck Neck: normal visual inspection, trachea midline, No lymphadenopathy, No midline deformity and No JVD Lymphatic: No lymphedema Chest Chest: normal inspection of the chest Resp Effort & Inspection: normal respiratory effort, able to speak in complete sentences, no respiratory distress and no use of accessory muscles Auscultation: clear to auscultation bilaterally, no rales, no rhonchi and no wheezes Cardio Rate: regular rate Rhythm: regular rhythm Heart Sounds: no click, no gallops, no murmurs and no rubs Pulses: normal peripheral pulses GI Inspection: non-distended Palpation: soft, no hepatosplenomegaly, No guarding, No pulsatile mass and No tender Back/Spine/Pelvis Back: No CVA tenderness Cervical Spine: cervical ROM normal and No pain with cervical ROM Thoracic/Lumbar Spine: thoracic and lumbar spine normal to inspection Skin General: no rashes or lesions noted, No jaundice and No petechiae Neuro General: alert, awake and oriented x3 Cranial Nerves: No facial strength normal (Left facial droop) Speech: abnormal speech (Slightly slurred) Motor: muscle tone normal throughout and strength 5/5 throughout (Slightly weaker on right than left) Sensory Exam: no sensory deficits noted Extrem General: full ROM, no clubbing, cyanosis or edema, no pedal edema and no calf tenderness Psych Appearance: well kempt Mental Status: mental status grossly normal Attitude: cooperative Thought Content: normal and suicidality Judgment: judgment good Course Course Course Narrative: Patient was worked up with labs, EKG, and CT scan of the head without contrast. Initial workup was negative, and patient was then sent for CTA of the head and neck to evaluate for a possible blockage that could be responsible for his symptoms. This was also unremarkable. I discussed with the patient and his daughter that it has now been 48 hour since the symptoms began, and that there is no specific intervention for his stroke-like symptoms at this time. The patient is in normal sinus rhythm and has no murmur, and I felt the likelihood of a mural thrombus is unlikely. However, I have advised the patient that he he will need to follow up with his primary care physician as soon as possible, preferably within the next week, to be evaluated with echocardiogram. He should take aspirin daily at this point in time for preventative purposes. We have also discussed helpful lifestyle changes for cardiovascular health and stroke prevention. Orders Ordered: Discontinued Medications Sodium Chloride (Normal Saline 0.9%) 1,000 mls @ 1,000 mls/hr IV BOLUS ONE Stop: 05/15/19 15:45 Last Infusion: 05/15/19 15:53 Dose: 0 mls/hr Documented by: Admin: 05/15/19 15:02 Dose: 1,000 mls/hr Documented by: GUERDA Vital Signs Vital signs: Vital Signs - 8 hr 05/15/19 14:29 Temperature 98.6 F Pulse Rate 71 Respiratory Rate 20 Blood Pressure [Left Arm] 178/68 H Pulse Oximetry 97 MDM - Neuro Symptoms/Deficit Medical Records Attestation: I reviewed the patient's medical records. Lab Data Attestation: I reviewed the patient's lab results. Result diagrams: 05/15/19 14:30 05/15/19 14:30 Labs: Lab Results 11/28/19 11/28/19 11/28/19 Range/Units 14:30 14:30 14:30 WBC 5.5 (4.5-11.0) X10^3/uL RBC 4.14 L (4.5-5.9) X10^6/uL Hgb 12.9 L (13.5-17.5) g/dL Hct 37.0 L (41-53) % MCV 89.4 (80-100) fL MCH 31.2 (26-34) PG MCHC 34.9 (30-36) % RDW 14.0 (11.6-14.8) % Plt Count 214 (150-400) X10^3/uL Neut % (Auto) 70.9 (50-75) % Lymph % (Auto) 16.0 L (25-40) % Cooper % (Auto) 8.6 (3-14) % Eos % (Auto) 4.2 H (2-4) % Baso % (Auto) 0.3 (0-2) % Neut # (Auto) 3900 (8435-2361) /uL Lymph # (Auto) 900 L (8043-9048) /uL Cooper # (Auto) 500 (0-900) /uL Eos # (Auto) 200 (0-450) /uL Baso # (Auto) 0 (0-100) /uL PT 13.4 H (10.1-12.7) SECONDS INR 1.2 (0.9-1.3) Sodium 136 L (137-145) mmol/L Potassium 4.0 (3.4-5.1) mmol/L Chloride 101 (98-107) mmol/L Carbon Dioxide 26 (22-32) mmol/L BUN 25 H (9-20) mg/dL Creatinine 1.10 (0.66-1.25) mg/dL Estimated GFR > 60.0 (>60) mL/min BUN/Creatinine Ratio 22.7 H (6-22) Glucose 167 H (80-110) mg/dL Calcium 9.4 (8.4-10.2) mg/dL Total Bilirubin 0.5 (0.2-1.3) mg/dL AST 25 (17-59) IU/L ALT 18 (<50) IU/L Alkaline Phosphatase 71 (38-126) U/L Total Protein 7.3 (6.3-8.2) g/dL Albumin 4.5 (3.5-5.0) g/dL Globulin 2.8 (1.7-4.1) g/dL Albumin/Globulin Ratio 1.6 (1.0-2.8) Discharge Plan Departure Patient Disposition: Home Clinical Impression: Cerebrovascular accident Qualifiers: CVA mechanism: unspecified Qualified Code(s): I63.9 - Cerebral infarction, unspecified Discharge Date/Time: 05/15/19 18:00 Instructions: DI for Stroke-Ischemic Activity Restrictions/Additional Instructions: Your labs and CT scan look good. There is no evidence of bleeding in your brain, and there is no distinct blockages that is visible. Most likely, you have some plaque in the smaller arteries of your brain, and this has caused the stroke-like symptoms you experienced a couple of days ago. It is important that you eat a healthful diet that is low in cholesterol and high in fresh fruits and vegetables and whole grains, as well as nuts. Please also continue to take the aspirin that you have been on. Even a small amount of low-impact exercise on a daily or nearly daily basis has also shown demonstrated benefit with regard to cardiovascular health. Please follow up with Dr. Lawrence to discuss having a heart ultrasound, or echocardiogram, done to complete the post stroke evaluation. If you develop any worsening neurologic symptoms at any time, please return to the emergency department immediately. Prescriptions: No Action aspirin [Adult Aspirin Regimen] 81 mg tablet,delayed release (DR/EC) 81 mg PO DAILY RF: 0 benzonatate [Tessalon Perles] 100 mg capsule 100 mg PO TID PRN (Reason: cough) Qty: 30 RF: 0 Fish Oil (#FISH OIL) 1 iu PO QDAY Qty: 0 RF: 0 PreserVision AREDS-2 1 EACH capsule 1 ea PO DIRECTED Qty: 0 RF: 0 metoprolol succinate [Toprol XL] 25 mg tablet extended release 24 hr 25 mg PO QDAY Qty: 90 RF: 1 tamsulosin [Flomax] 0.4 mg capsule 0.8 mg PO DAILY Qty: 180 RF: 0 lovastatin 20 mg tablet See Rx Instructions .ROUTE .COMPLEX Qty: 30 RF: 0 metformin [Glucophage] 500 mg tablet 250 mg PO BID Qty: 60 RF: 0 (DME) miscellaneous medical supply kit See Dose Instructions .ROUTE .MEDSUPPLY Qty: 1 RF: 0 Referrals: Beba Lawrence MD [Primary Care Provider] -
[2019-05-15 14:58] LABS: INR 1.2 (0.9-1.3); Prothrombin Time 13.4 SECONDS (10.1-12.7)
[2019-05-15 15:00] VITALS: BP 136/61; PULSE 62; RESP 15; O2SAT 95
[2019-05-15 15:00] LABS: Add Manual Diff / Slide Review NO; Basophils Absolute Auto 0 /uL (0-100); Basophils Percent Auto 0.3 % (0-2); Eosinophils Absolute Auto 200 /uL (0-450); Eosinophils Percent Auto 4.2 % (2-4); Hemoglobin 12.9 g/dL (13.5-17.5); Lymphocytes Absolute Auto 900 /uL (1100-4500); Mean Corpuscular HGB Conc 34.9 % (30-36); Mean Corpuscular Hemoglobin 31.2 PG (26-34); Mean Corpuscular Volume 89.4 fL (80-100); Monocytes Absolute Auto 500 /uL (0-900); Monocytes Percent Auto 8.6 % (3-14); Neutrophils Absolute Auto 3900 /uL (1500-7000); Neutrophils Percent Auto 70.9 % (50-75); Platelet Count 214 X10^3/uL (150-400); Red Blood Cell Count 4.14 X10^6/uL (4.5-5.9); White Blood Cell Count 5.5 X10^3/uL (4.5-11.0)
[2019-05-15 15:02] LABS: Alanine Aminotransferase 18 IU/L (<50); Albumin 4.5 g/dL (3.5-5.0); Albumin Globulin Ratio 1.6 (1.0-2.8); Alkaline Phosphatase 71 U/L (38-126); Aspartate Aminotransferase 25 IU/L (17-59); BUN Creatinine Ratio 22.7 (6-22); Bilirubin Total 0.5 mg/dL (0.2-1.3); Blood Urea Nitrogen 25 mg/dL (9-20); Calcium 9.4 mg/dL (8.4-10.2); Carbon Dioxide 26 mmol/L (22-32); Chloride 101 mmol/L (98-107); Estimated Glomerular Filt Rate > 60.0 mL/min (>60); Globulin 2.8 g/dL (1.7-4.1); Glucose 167 mg/dL (80-110); HEMOLYSIS < 15 (0-50); Sodium 136 mmol/L (137-145); Total Protein 7.3 g/dL (6.3-8.2)
[2019-05-15] MEDS: SODIUM CHLORIDE 0.9% 1,000 ML 1000 ML IV (15:02)
--- NOTE | 2019-05-15 15:58 | DI.CT.S_ITS ---
PROCEDURE: CT ANGIO HEAD AND NECK INDICATIONS: stroke TECHNIQUE: Pre-contrast 4.5 mm thick sections acquired from the foramen magnum to the vertex. After the administration of intravenous contrast, 1 mm thick sections acquired from the aortic arch through the [place] of [place]. Post-contrast 4.5 mm thick sections then re-acquired from the foramen magnum to the vertex. 3-dimensional noifdwf-sjblmovar-vtchcyzoiu (MIP) and/or volume rendering reformats were acquired of the central intracranial vasculature and neck separately. COMPARISON: [facility], CR, XR CHEST 2V, 10/14/2018, 13:26. FINDINGS: Image quality: There is streak artifact from the dental amalgam. BRAIN: CSF spaces: Ventricles are normal in size and shape. Basal cisterns are patent. No extra-axial fluid collections. Brain: No midline shift. No intracranial bleeds or masses. [place]-white matter interface appears intact. Skull and face: Calvarium and facial bones appear intact, without suspicious lesions. Orbits appear normal. Sinuses: There is a mucous retention cyst seen involving the anterior left maxillary sinus. Mild mucosal thickening is seen within the ethmoid air cells and the inferior frontal sinuses. No abnormal fluid is seen within the mastoid air cells or within the middle ear cavities. HEAD CT ANGIOGRAPHY: Anterior circulation: Intracranial internal carotid arteries are normal in size and flow. The flow within the paired anterior cerebral arteries is normal and symmetric. The flow within the middle cerebral arteries is normal and symmetric. The anterior communicating artery is seen. No aneurysms are seen. Posterior circulation: The left vertebral artery is dominant to the right. The right vertebral artery largely terminates in the right posterior inferior cerebellar artery. There is a normal appearing basilar artery. There is a prominent right posterior communicating artery seen, with an accompanying diminutive right P1 segment. This is attributed to a type origin of the right posterior cerebral artery, which is considered to be a normal developmental variant of typically no clinical consequence. Flow within the posterior cerebral arteries is normal and symmetric. No aneurysms are seen. NECK CT ANGIOGRAPHY: Carotid system: Incidental note is made of a common origin of the right brachiocephalic artery and the left common carotid artery (bovine type arch). This is considered to be a developmental variant of no clinical consequence. The origins of the common carotid arteries appear patent. The common carotid arteries demonstrate normal caliber and courses. The bifurcation regions demonstrate mild atherosclerotic irregularity The internal carotid arteries demonstrate normal calibers and courses. Posterior circulation: The origins of the vertebral arteries both appear widely patent. The left vertebral artery is dominant to the right. The right vertebral artery is diminutive throughout its course and largely terminates in the right posterior inferior cerebellar artery. There is a normal appearing basilar artery. Soft tissues: Visualized neck soft tissues demonstrate no suspicious abnormalities. Bones: No suspicious bony lesions. Visualized cervical spine appears normally aligned. At least moderate cervical spine degenerative change is seen inferiorly. IMPRESSION: No acute intracranial process is seen. No acute intracranial hemorrhage. If there is strong clinical suspicion for an acute stroke, please consider an MRI for further evaluation, as it is more sensitive (assuming that there is no contraindication to MRI). No significant intracranial arterial abnormality can be seen. Within the arteries of the neck, no hemodynamically significant stenosis can be seen. The left vertebral artery is dominant to the right and the right vertebral artery largely terminates in the right posterior inferior cerebellar artery. Incidental note is made of: Bovine type arch branching pattern Cervical spine degenerative change type origin of the right posterior cerebral artery Any quantitative measurements of stenosis were performed using NASCET criteria. Dictated by: Hira Padilla M.D. on 05/15/2019 at 15:54 Approved by: Hira Padilla M.D. on 05/15/2019 at 16:01
[2019-05-15 17:32] VITALS: BP 148/65; PULSE 67; RESP 20; O2SAT 97
== END 2019-05-15 18:00 | disposition home or self-care (01) ==
PROVIDERS: Emergency Provider Emergency Medicine; PCP Internal Medicine
DX: I63.9 Cerebral infarction, unspecified (principal)
CPT/HCPCS: 36415; 70496; 70498; 80053; 85025; 85610; 96360; 99283; 99285

== ENCOUNTER → 2019-05-27 13:05 | Outpatient (CLI) | payer OTHER, SELFPAY ==
[2018-10-05 03:37] VITALS: BMI 28.1
--- NOTE | 2019-05-27 | DI.MRI.S_ITS ---
PROCEDURE: MR HEAD/BRAIN WO CON INDICATIONS: Cerebral infarction, unspecified TECHNIQUE: Non-contrast axial T1 spin echo, axial T2 fast spin echo, sagittal and axial FLAIR, coronal T2 fast spin echo, axial gradient echo, axial diffusion and ADC through the brain. COMPARISON: None. FINDINGS: Image quality: Excellent. CSF spaces: Ventricles appear symmetric in size and shape. Basal cisterns are patent. No extra-axial fluid collections. Brain: No intracranial bleeds or mass effects. There is cerebral volume loss for age. There are periventricular and deep white matter chronic small vessel ischemic changes. Brainstem appears normal. Small punctate focus of restricted diffusion noted in the left occipital lobe compatible with acute infarct. A small, subtle focus of restricted diffusion and increased T2 signal noted in the left aspect of the gonzalez concerning for subacute infarct.. No chronic ischemic insults. Normal intravascular flow voids are present. Skull and face: Calvarial bone marrow is normal in signal. Orbits are normal. Sinuses: Small mucous retention cyst versus polyp is noted in the left maxillary sinus. Minimal mucosal thickening noted in the right maxillary sinus, the ethmoid air cells and the frontal sinuses. The mastoids are clear. IMPRESSION: 1. Acute small lacunar infarct involving the right occipital lobe. 2. Probable small subacute lacunar infarct involving the left gonzalez. 3. There is mild to moderate diffuse cerebral volume loss. 4. There are mild periventricular and subcortical white matter chronic microvascular ischemic changes. Dictated by: Emely Garcia MD, PhD on 05/27/2019 at 17:08 Approved by: Emely Garcia MD, PhD on 05/27/2019 at 17:12
== END ==
PROVIDERS: PCP Internal Medicine; Visit Provider Internal Medicine
DX: I63.9 Cerebral infarction, unspecified (principal)
CPT/HCPCS: 70551

== ENCOUNTER → 2019-06-20 07:41 | Outpatient (CLI) | payer OTHER, SELFPAY ==
[2018-10-05 03:37] VITALS: BMI 28.1
[2019-06-20 09:05] LABS: Hemoglobin A1C% w Est Avg Glu 5.5 % (4.0-6.0)
[2019-06-20 09:06] LABS: Alanine Aminotransferase 18 IU/L (<50); Aspartate Aminotransferase 23 IU/L (17-59); Blood Urea Nitrogen 22 mg/dL (9-20); Calcium 9.3 mg/dL (8.4-10.2); Carbon Dioxide 28 mmol/L (22-32); Chloride 102 mmol/L (98-107); Cholesterol 144 mg/dL (140-199); Estimated Glomerular Filt Rate > 60.0 mL/min (>60); Glucose 109 mg/dL (80-110); HDL Cholesterol 38 mg/dL (40-60); HEMOLYSIS < 15 (0-50); LDL Cholesterol Calculated 81 mg/dL (<100); Potassium 4.1 mmol/L (3.4-5.1); Sodium 140 mmol/L (137-145); Triglycerides 124 mg/dL (35-150)
== END ==
PROVIDERS: PCP Internal Medicine; Visit Provider Internal Medicine
DX: I10 Essential (primary) hypertension (principal); E78.49 Other hyperlipidemia; E11.9 Type 2 diabetes mellitus without complications
CPT/HCPCS: 36415; 80048; 80061; 83036; 84450; 84460

== ENCOUNTER → 2019-12-29 07:20 | Outpatient (CLI) | payer OTHER, SELFPAY ==
[2018-10-05 03:37] VITALS: BMI 28.1
[2019-12-29 10:07] LABS: Alanine Aminotransferase 18 IU/L (<50); Albumin 4.4 g/dL (3.5-5.0); Albumin Globulin Ratio 1.9 (1.0-2.8); Alkaline Phosphatase 62 U/L (38-126); Aspartate Aminotransferase 24 IU/L (17-59); BUN Creatinine Ratio 18.5 (6-22); Bilirubin Total 0.6 mg/dL (0.2-1.3); Blood Urea Nitrogen 20 mg/dL (9-20); Calcium 9.5 mg/dL (8.4-10.2); Carbon Dioxide 30 mmol/L (22-32); Chloride 103 mmol/L (98-107); Cholesterol 123 mg/dL (140-199); Estimated Glomerular Filt Rate > 60.0 mL/min (>60); Globulin 2.3 g/dL (1.7-4.1); Glucose 113 mg/dL (80-110); HDL Cholesterol 38 mg/dL (40-60); HEMOLYSIS < 15 (0-50); LDL Cholesterol Calculated 56 mg/dL (<100); Potassium 4.5 mmol/L (3.4-5.1); Sodium 140 mmol/L (137-145); Total Protein 6.7 g/dL (6.3-8.2); Triglycerides 147 mg/dL (35-150)
== END ==
PROVIDERS: PCP Internal Medicine; Referring Provider Internal Medicine; Visit Provider Internal Medicine
DX: I10 Essential (primary) hypertension (principal); E78.49 Other hyperlipidemia; E11.9 Type 2 diabetes mellitus without complications
CPT/HCPCS: 36415; 80053; 80061; 83036

== ENCOUNTER → 2020-09-07 10:40 | Outpatient (CLI) | payer MEDICARE, SELFPAY ==
[2018-10-05 03:37] VITALS: BMI 28.1
[2020-09-07] MEDS: COVID-19 VACC #1, MRNA(MOD) 100 MCG/0.5 ML VIAL IM (10:51)
== END ==
PROVIDERS: PCP Internal Medicine; Visit Provider Internal Medicine
DX: Z23 Encounter for immunization (principal)
CPT/HCPCS: 0011A; 91301

== ENCOUNTER → 2020-10-01 07:29 | Outpatient (CLI) | payer OTHER, SELFPAY ==
[2018-10-05 03:37] VITALS: BMI 28.1
[2020-10-01 10:01] LABS: Alanine Aminotransferase 19 IU/L (<50); Albumin 4.2 g/dL (3.5-5.0); Albumin Globulin Ratio 1.7 (1.0-2.8); Alkaline Phosphatase 69 U/L (38-126); Aspartate Aminotransferase 23 IU/L (17-59); BUN Creatinine Ratio 18.3 (6-22); Bilirubin Total 0.4 mg/dL (0.2-1.3); Blood Urea Nitrogen 19 mg/dL (9-20); Calcium 9.5 mg/dL (8.4-10.2); Carbon Dioxide 25 mmol/L (22-32); Chloride 105 mmol/L (98-107); Cholesterol 134 mg/dL (140-199); Estimated Glomerular Filt Rate > 60.0 mL/min (>60); Globulin 2.5 g/dL (1.7-4.1); Glucose 114 mg/dL (80-110); HDL Cholesterol 36 mg/dL (40-60); HEMOLYSIS < 15 (0-50); LDL Cholesterol Calculated 55 mg/dL (<100); Potassium 4.3 mmol/L (3.4-5.1); Sodium 138 mmol/L (137-145); Total Protein 6.7 g/dL (6.3-8.2); Triglycerides 213 mg/dL (35-150)
[2020-10-01 11:50] LABS: Creatinine Urine Random 126.2 mg/dL
[2020-10-01 11:51] LABS: Microalbumi Creatinin Ratio Ur 5.5 ug/mg CR (<30); Microalbumin Urine Random 0.7 mg/dL (0-1.6)
[2020-10-02 08:08] LABS: PSA Free % 40.7 % (.); PSA, Total 1.4 ng/mL (0.0-4.0)
== END ==
PROVIDERS: PCP Internal Medicine; Referring Provider Physician Assistant Medical; Visit Provider Internal Medicine
DX: I10 Essential (primary) hypertension (principal); E11.9 Type 2 diabetes mellitus without complications; E78.49 Other hyperlipidemia; R97.20 Elevated prostate specific antigen [PSA]
CPT/HCPCS: 36415; 80053; 80061; 82043; 82570; 84153; 84154

== ENCOUNTER → 2020-10-06 10:16 | Outpatient (CLI) | payer MEDICARE, SELFPAY ==
[2018-10-05 03:37] VITALS: BMI 28.1
[2020-10-06] MEDS: COVID-19 VACC #2, MRNA(MOD) 100 MCG/0.5 ML VIAL IM (10:25)
== END ==
PROVIDERS: PCP Internal Medicine; Visit Provider Internal Medicine
DX: Z23 Encounter for immunization (principal)
CPT/HCPCS: 0012A; 91301